=== PATIENT | female | born 1945 | race Caucasian/White ===

== ENCOUNTER 2019-05-12 20:52 | Observation (INO) ==
[2019-05-13] MEDS ORDERED: Ondansetron ODT 4 MG TAB.RAPDIS SL PRN (01:06)
[2019-05-13] MEDS ORDERED: Naloxone 0.4 MG/ML INJ IVP PRN ×2 (01:06→02:46)
[2019-05-13] MEDS ORDERED: Acetaminophen 325 MG TABLET PO PRN (01:06)
[2019-05-13] MEDS ORDERED: *HR* Dextrose 50 % in Water (Syg) 50 ML SYRINGE IVP PRN (01:16)
[2019-05-13] MEDS ORDERED: Dextrose Gel 15 GM/37.5 ML TUBE PO PRN ×2 (01:16)
[2019-05-13] MEDS ORDERED: D5% in Water 1,000 ML IVC PRN (01:16)
[2019-05-13] MEDS ORDERED: Ondansetron 4 MG/2 ML VIAL IVP PRN (02:46)
[2019-05-13 03:53] LABS: Basophils % 0.2 %; Hematocrit 33.8 % (35.3-44.9); Immature Granulocytes % 0.5 % (0-4); Lymphocytes # 0.8 K/mcL (0.6-4.6); Lymphocytes % 8.5 %; Mean Corpuscular HGB Conc 32.5 g/dL (31.6-35.5); Mean Corpuscular Hemoglobin 28.9 pg (28.0-33.3); Mean Corpuscular Volume 88.7 fL (83.0-100.0); Mean Platelet Volume 9.5 fL (9.4-12.4); Monocytes # 0.2 K/mcL (0.0-1.3); Monocytes % 1.8 %; Neutrophils # 8.4 K/mcL (1.6-8.9); Platelet Count 238 K/mcL (140-400); Red Blood Count 3.81 M/mcL (3.82-4.97); Red Cell Distribution Width 14.3 % (11.5-14.5); White Blood Count 9.5 K/mcL (4.3-11.1)
[2019-05-13 04:04] LABS: INR 1.4; Prothrombin Time 15.5 Seconds (9.4-12.1)
[2019-05-13 04:14] LABS: BUN/Creatinine Ratio 20 (6-26); Blood Urea Nitrogen 18 mg/dL (8-23); Calcium 8.5 mg/dL (8.6-10.3); Carbon Dioxide 31 mEq/L (23-29); Chloride 95 mEq/L (98-107); Chol/HDL Ratio 2.6 (0-4.9); Glucose 366 mg/dL (70-105); Magnesium 1.4 mg/dL (1.6-2.6); Osmolality,Calculated 303 (280-300); Phosphorous 4.3 mg/dL (2.7-4.5); Potassium 3.9 mEq/L (3.5-5.1); Sodium 138 mEq/L (136-145); eGFR For African Americans > 60 (> 60); eGFR For Non-African Americans 60 (> 60)
[2019-05-13] MEDS: *HR* Enoxaparin 40 MG/0.4 ML SYRINGE SQ SCH (05:20)
[2019-05-13] MEDS ORDERED: Furosemide 20 MG TABLET PO SCH (09:00)
[2019-05-13] MEDS ORDERED: Metoprolol XL (24 HR) Succ 25 MG TAB.ER.24H PO SCH (09:00)
[2019-05-13] MEDS: Furosemide 40 MG/4 ML VIAL IVP SCH ×2 (09:18→20:17)
[2019-05-13] MEDS: Insulin LISPRO 300 UNITS/3 ML VIAL SQ SCH ×3 (09:27→18:00)
[2019-05-13] MEDS ORDERED: Gabapentin 400 MG CAPSULE PO SCH ×2 (15:00→21:00)
[2019-05-13] MEDS ORDERED: Perflutren Lipid Microsphere 1.3 ML in 0.9 % Sodium Chloride 8.7 ML IVP ONE (15:35)
[2019-05-13] MEDS ORDERED: traZODone 50 MG TABLET PO SCH (21:00)
[2019-05-14] MEDS: *HR* Enoxaparin 40 MG/0.4 ML SYRINGE SQ SCH (05:27)
[2019-05-14 06:03] LABS: Hematocrit 36.3 % (35.3-44.9); Hemoglobin 11.5 g/dL (11.5-15.4); Mean Corpuscular HGB Conc 31.7 g/dL (31.6-35.5); Mean Corpuscular Hemoglobin 28.4 pg (28.0-33.3); Mean Corpuscular Volume 89.6 fL (83.0-100.0); Mean Platelet Volume 9.9 fL (9.4-12.4); Platelet Count 275 K/mcL (140-400); Red Blood Count 4.05 M/mcL (3.82-4.97); Red Cell Distribution Width 14.6 % (11.5-14.5)
[2019-05-14 06:32] LABS: BUN/Creatinine Ratio 35 (6-26); Blood Urea Nitrogen 33 mg/dL (8-23); Calcium 8.8 mg/dL (8.6-10.3); Carbon Dioxide 35 mEq/L (23-29); Chloride 97 mEq/L (98-107); Glucose 248 mg/dL (70-105); Osmolality,Calculated 310 (280-300); Potassium 3.8 mEq/L (3.5-5.1); Sodium 142 mEq/L (136-145); eGFR For African Americans > 60 (> 60); eGFR For Non-African Americans 58 (> 60)
[2019-05-14] MEDS ORDERED: *HR* OxyCODONE/APAP 5/325 TABLET PO PRN ×2 (07:28→09:46)
[2019-05-14] MEDS: Insulin LISPRO 300 UNITS/3 ML VIAL SQ SCH ×2 (08:23→11:27)
[2019-05-14] MEDS ORDERED: Gabapentin 400 MG CAPSULE PO SCH (09:00)
[2019-05-14] MEDS ORDERED: Furosemide 40 MG/4 ML VIAL IVP SCH (09:00)
[2019-05-14] MEDS ORDERED: hydroCHLOROthiazide 25 MG TABLET PO SCH (09:00)
[2019-05-14 10:54] VITALS: BP 125/59
== END 2019-05-14 15:09 | disposition home or self-care (01) ==
LOC: 3ANU → SUATTDRO 22:38
PROVIDERS: ADMIT Student in an Organized Health Care Education/Training Program; ATTEND Internal Medicine

== ENCOUNTER 2020-03-01 04:26 | Inpatient (IN) ==
[2020-03-01] MEDS ORDERED: *HR* Promethazine 25 MG/ML VIAL IM PRN (06:32)
[2020-03-01] MEDS ORDERED: Naloxone 0.4 MG/ML INJ IVP PRN (06:32)
[2020-03-01] MEDS ORDERED: Ondansetron 4 MG/2 ML VIAL IVP PRN (06:32)
[2020-03-01] MEDS ORDERED: Dextrose Gel 15 GM/37.5 ML TUBE PO PRN ×4 (07:46→21:10)
[2020-03-01] MEDS ORDERED: D5% in Water 1,000 ML IVC PRN ×2 (07:46→21:10)
[2020-03-01] MEDS ORDERED: *HR* Dextrose 50 % in Water (Vial) 50 ML VIAL IVP PRN ×2 (07:46→21:10)
[2020-03-01] MEDS: Ipratropium 1 PUFF INHALER IH SCH ×3 (09:30→22:06)
[2020-03-01] MEDS: Budesonide/Formoterol 160/4.5 1 PUFF INH IH SCH ×2 (09:30→22:06)
[2020-03-01 09:57] LABS: % Iron Saturation 3 % (15-50); Iron 10 mcg/dL (50-170); Transferrin 262 mg/dL (203-362)
[2020-03-01 09:59] LABS: C-Reactive Protein 41 mg/L (Less than 10); Lactate Dehydrogenase 224 Units/L (140-271)
[2020-03-01] MEDS: Furosemide 20 MG/2 ML VIAL IVP SCH (09:59)
[2020-03-01] MEDS: Dexamethasone 4 MG/ML VIAL IVP SCH (10:00)
[2020-03-01] MEDS: *HR* Enoxaparin 40 MG/0.4 ML SYRINGE SQ SCH ×2 (10:01→20:46)
[2020-03-01] MEDS: Multivit/Ca/Min/Fe/FA 1 TAB TABLET PO SCH (10:01)
[2020-03-01 10:17] LABS: Ferritin 83 ng/mL (10-120)
[2020-03-01 10:22] LABS: Folate > 22.3 ng/mL (3.0-16.0); Vitamin B12 326 pg/mL (250-1100)
[2020-03-01 10:53] LABS: Estimated Average Glucose 240 mg/dl
[2020-03-01 11:22] LABS: ABG Base Excess 2 mEq/L (-2 to 3); ABG HCO3 26 mEq/L (21-27); ABG Oxygen Saturation 95 % (95-98); ABG PCO2 37 mmHg (35-45); ABG PH 7.45 pH Units (7.32-7.45); ABG PO2 71 mmHg (85-104); ABG TCO2 27 mEq/L (20-26)
[2020-03-01] MEDS: Insulin LISPRO 300 UNITS/3 ML VIAL SQ SCH ×3 (12:07→22:16)
[2020-03-01] MEDS: Calcium Gluconate 1gm/50mL 1 GM/50 ML BAG IVPB SCH ×2 (12:07→13:03)
[2020-03-01] MEDS: Insulin DETEMIR 100 UNIT/ML X5UNITS SQ SCH (20:46)
[2020-03-02] MEDS: Ipratropium 1 PUFF INHALER IH SCH ×4 (03:50→19:46)
[2020-03-02] MEDS: Acetaminophen 325 MG TABLET PO PRN ×2 (04:22→21:36)
[2020-03-02 06:25] LABS: Basophils % 0.2 %; Hematocrit 34.5 % (35.3-44.9); Hemoglobin 10.8 g/dL (11.5-15.4); Immature Granulocytes % 0.3 % (0-4); Lymphocytes # 1.4 K/mcL (0.6-4.6); Lymphocytes % 14.3 %; Mean Corpuscular HGB Conc 31.3 g/dL (31.6-35.5); Mean Corpuscular Hemoglobin 28.4 pg (28.0-33.3); Mean Corpuscular Volume 90.8 fL (83.0-100.0); Mean Platelet Volume 10.1 fL (9.4-12.4); Monocytes # 0.5 K/mcL (0.0-1.3); Monocytes % 4.8 %; Neutrophils # 7.9 K/mcL (1.6-8.9); Platelet Count 222 K/mcL (140-400); Red Cell Distribution Width 14.6 % (11.5-14.5); Segmented Neutrophils % 80.4 %; White Blood Count 9.8 K/mcL (4.3-11.1)
[2020-03-02 06:51] LABS: Alanine Aminotransferase 27 Units/L (7-52); Albumin 3.4 g/dL (3.5-5.7); Albumin/Globulin Ratio 0.9 (1.1-2.2); Alkaline Phosphatase 54 Units/L (34-104); Aspartate Amino Transferase 29 Units/L (13-39); BUN/Creatinine Ratio 39 (6-26); Bilirubin,Total 0.4 mg/dL (0.3-1.0); Blood Urea Nitrogen 24 mg/dL (8-23); Calcium 8.7 mg/dL (8.6-10.3); Carbon Dioxide 27 mEq/L (23-29); Chloride 101 mEq/L (98-107); Globulin 3.6 g/dL (2.4-3.5); Glucose 225 mg/dL (70-105); Lactate Dehydrogenase 268 Units/L (140-271); Osmolality,Calculated 295 (280-300); Potassium 3.7 mEq/L (3.5-5.1); Sodium 137 mEq/L (136-145); eGFR For African Americans > 60 (> 60); eGFR For Non-African Americans > 60 (> 60)
[2020-03-02 06:56] LABS: Ferritin 139 ng/mL (10-120)
[2020-03-02] MEDS ORDERED: Insulin LISPRO 300 UNITS/3 ML VIAL SQ SCH (07:30)
[2020-03-02] MEDS ORDERED: Azithromycin 500 MG in 0.9 % Sodium Chloride 250 ML IVPB SCH (09:00)
[2020-03-02] MEDS ORDERED: cefTRIAXone 1,000 MG in 0.9 % Sodium Chloride Mini Bag 100 ML IVP SCH (09:00)
[2020-03-02] MEDS: Multivit/Ca/Min/Fe/FA 1 TAB TABLET PO SCH (09:07)
[2020-03-02] MEDS: Dexamethasone 4 MG/ML VIAL IVP SCH ×2 (09:07→09:33)
[2020-03-02] MEDS: Insulin LISPRO 300 UNITS/3 ML VIAL SQ SCH ×3 (09:08→16:42)
[2020-03-02] MEDS: Furosemide 20 MG/2 ML VIAL IVP SCH ×2 (09:09→09:33)
[2020-03-02] MEDS: *HR* Enoxaparin 40 MG/0.4 ML SYRINGE SQ SCH ×2 (09:10→20:59)
[2020-03-02 09:42] LABS: C-Reactive Protein 50 mg/L (Less than 10)
[2020-03-02] MEDS ORDERED: dexAMETHasone 4 MG TABLET PO SCH (10:15)
[2020-03-02] MEDS: Budesonide/Formoterol 160/4.5 1 PUFF INH IH SCH ×2 (11:47→19:46)
[2020-03-02] MEDS ORDERED: Ondansetron ODT 4 MG TAB.RAPDIS SL ONE (11:59)
[2020-03-02] MEDS ORDERED: 0.9 % Sodium Chloride 250 ML IVC ONE (12:22)
[2020-03-02] MEDS: Metoclopramide 10 MG/2 ML VIAL IVP PRN (16:45)
[2020-03-02] MEDS ORDERED: 0.9 % Sodium Chloride 1,000 ML IVC SCH (18:00)
[2020-03-02] MEDS: cefTRIAXone 1,000 MG in Water for inj. (sterile) 10 ML IVP SCH (20:54)
[2020-03-02] MEDS: Azithromycin 500 MG in 0.9 % Sodium Chloride 250 ML IVPB SCH (20:57)
[2020-03-02] MEDS: Insulin DETEMIR 100 UNIT/ML X5UNITS SQ SCH (21:10)
[2020-03-03] MEDS: Insulin LISPRO 300 UNITS/3 ML VIAL SQ SCH ×5 (00:09→22:08)
[2020-03-03 03:48] LABS: Basophils % 0.4 %; Hematocrit 31.3 % (35.3-44.9); Hemoglobin 9.5 g/dL (11.5-15.4); Immature Granulocytes % 0.4 % (0-4); Lymphocytes # 1.8 K/mcL (0.6-4.6); Lymphocytes % 22.4 %; Mean Corpuscular HGB Conc 30.4 g/dL (31.6-35.5); Mean Corpuscular Hemoglobin 27.1 pg (28.0-33.3); Mean Corpuscular Volume 89.4 fL (83.0-100.0); Mean Platelet Volume 10.2 fL (9.4-12.4); Monocytes # 0.3 K/mcL (0.0-1.3); Monocytes % 4.1 %; Neutrophils # 5.7 K/mcL (1.6-8.9); Platelet Count 217 K/mcL (140-400); Red Cell Distribution Width 15.1 % (11.5-14.5); Segmented Neutrophils % 72.7 %; White Blood Count 7.8 K/mcL (4.3-11.1)
[2020-03-03] MEDS: Ipratropium 1 PUFF INHALER IH SCH ×4 (03:52→21:54)
[2020-03-03 04:04] LABS: INR 1.4; Prothrombin Time 16.2 Seconds (9.4-12.1)
[2020-03-03 04:10] LABS: Alanine Aminotransferase 25 Units/L (7-52); Albumin/Globulin Ratio 0.9 (1.1-2.2); Alkaline Phosphatase 43 Units/L (34-104); Aspartate Amino Transferase 35 Units/L (13-39); BUN/Creatinine Ratio 38 (6-26); Bilirubin,Total 0.6 mg/dL (0.3-1.0); Blood Urea Nitrogen 23 mg/dL (8-23); C-Reactive Protein 136 mg/L (Less than 10); Calcium 7.7 mg/dL (8.6-10.3); Carbon Dioxide 28 mEq/L (23-29); Chloride 101 mEq/L (98-107); Globulin 3.2 g/dL (2.4-3.5); Glucose 155 mg/dL (70-105); Lactate Dehydrogenase 296 Units/L (140-271); Osmolality,Calculated 291 (280-300); Potassium 3.4 mEq/L (3.5-5.1); Sodium 137 mEq/L (136-145); Total Protein 6.2 g/dL (6.4-8.9); eGFR For African Americans > 60 (> 60); eGFR For Non-African Americans > 60 (> 60)
[2020-03-03 04:27] LABS: Ferritin 243 ng/mL (10-120)
[2020-03-03] MEDS: Acetaminophen 325 MG TABLET PO PRN ×2 (05:29→13:34)
[2020-03-03] MEDS: Budesonide/Formoterol 160/4.5 1 PUFF INH IH SCH ×2 (10:04→21:56)
[2020-03-03] MEDS: Dexamethasone 4 MG/ML VIAL IVP SCH (11:11)
[2020-03-03] MEDS: Potassium Chloride Elixir 20 MEQ/15 ML UDC PO SCH ×2 (11:12→13:23)
[2020-03-03] MEDS: Multivit/Ca/Min/Fe/FA 1 TAB TABLET PO SCH (11:12)
[2020-03-03] MEDS: *HR* Enoxaparin 40 MG/0.4 ML SYRINGE SQ SCH ×2 (11:13→22:05)
[2020-03-03] MEDS ORDERED: Furosemide 20 MG/2 ML VIAL IVP SCH (12:00)
[2020-03-03] MEDS: Metoclopramide 10 MG/2 ML VIAL IVP PRN (13:33)
[2020-03-03] MEDS: Benzonatate 100 MG CAPSULE PO PRN (22:04)
[2020-03-03] MEDS: Gabapentin 400 MG CAPSULE PO SCH (22:05)
[2020-03-03] MEDS: Furosemide 20 MG/2 ML VIAL IVP SCH (22:05)
[2020-03-03] MEDS: Azithromycin 500 MG in 0.9 % Sodium Chloride 250 ML IVPB SCH (22:06)
[2020-03-03] MEDS: cefTRIAXone 1,000 MG in Water for inj. (sterile) 10 ML IVP SCH (22:07)
[2020-03-03] MEDS: Insulin DETEMIR 100 UNIT/ML X5UNITS SQ SCH (22:09)
[2020-03-04] MEDS: Acetaminophen 325 MG TABLET PO PRN ×2 (03:00→05:47)
[2020-03-04 03:33] LABS: Basophils % 0.1 %; Hematocrit 31.6 % (35.3-44.9); Hemoglobin 9.7 g/dL (11.5-15.4); Immature Granulocytes % 0.7 % (0-4); Lymphocytes # 0.5 K/mcL (0.6-4.6); Mean Corpuscular HGB Conc 30.7 g/dL (31.6-35.5); Mean Corpuscular Hemoglobin 27.5 pg (28.0-33.3); Mean Corpuscular Volume 89.5 fL (83.0-100.0); Mean Platelet Volume 10.6 fL (9.4-12.4); Monocytes # 0.3 K/mcL (0.0-1.3); Monocytes % 3.3 %; Neutrophils # 6.7 K/mcL (1.6-8.9); Platelet Count 216 K/mcL (140-400); Red Blood Count 3.53 M/mcL (3.82-4.97); Red Cell Distribution Width 15.1 % (11.5-14.5); Segmented Neutrophils % 88.9 %; White Blood Count 7.6 K/mcL (4.3-11.1)
[2020-03-04 03:34] LABS: INR 1.6; Prothrombin Time 18.2 Seconds (9.4-12.1)
[2020-03-04] MEDS: Ipratropium 1 PUFF INHALER IH SCH ×4 (03:53→20:03)
[2020-03-04 04:12] LABS: Alanine Aminotransferase 36 Units/L (7-52); Albumin/Globulin Ratio 0.8 (1.1-2.2); Alkaline Phosphatase 46 Units/L (34-104); Aspartate Amino Transferase 64 Units/L (13-39); BUN/Creatinine Ratio 34 (6-26); Bilirubin,Total 0.5 mg/dL (0.3-1.0); Blood Urea Nitrogen 20 mg/dL (8-23); C-Reactive Protein 218 mg/L (Less than 10); Calcium 7.7 mg/dL (8.6-10.3); Carbon Dioxide 27 mEq/L (23-29); Chloride 99 mEq/L (98-107); Ferritin 414 ng/mL (10-120); Globulin 3.7 g/dL (2.4-3.5); Glucose 270 mg/dL (70-105); Lactate Dehydrogenase 601 Units/L (140-271); Osmolality,Calculated 290 (280-300); Potassium 4.8 mEq/L (3.5-5.1); Sodium 134 mEq/L (136-145); Total Protein 6.7 g/dL (6.4-8.9); eGFR For African Americans > 60 (> 60); eGFR For Non-African Americans > 60 (> 60)
[2020-03-04] MEDS: Gabapentin 400 MG CAPSULE PO SCH ×3 (05:37→20:05)
[2020-03-04] MEDS: Insulin LISPRO 300 UNITS/3 ML VIAL SQ SCH ×4 (07:50→20:56)
[2020-03-04] MEDS: Metoprolol XL (24 HR) Succ 25 MG TAB.ER.24H PO SCH (07:51)
[2020-03-04] MEDS: Furosemide 20 MG/2 ML VIAL IVP SCH ×2 (07:51→20:01)
[2020-03-04] MEDS: Dexamethasone 4 MG/ML VIAL IVP SCH (07:52)
[2020-03-04] MEDS: *HR* Enoxaparin 40 MG/0.4 ML SYRINGE SQ SCH ×2 (07:52→20:04)
[2020-03-04] MEDS: Multivit/Ca/Min/Fe/FA 1 TAB TABLET PO SCH (07:53)
[2020-03-04] MEDS: Budesonide/Formoterol 160/4.5 1 PUFF INH IH SCH ×2 (10:05→20:03)
[2020-03-04] MEDS: cefTRIAXone 1,000 MG in Water for inj. (sterile) 10 ML IVP SCH (20:01)
[2020-03-04] MEDS: Insulin DETEMIR 100 UNIT/ML X5UNITS SQ SCH (20:02)
[2020-03-04] MEDS: Azithromycin 250 MG TABLET PO SCH (20:04)
[2020-03-05] MEDS: Ipratropium 1 PUFF INHALER IH SCH ×4 (03:39→21:13)
[2020-03-05] MEDS: Gabapentin 400 MG CAPSULE PO SCH ×3 (05:11→22:57)
[2020-03-05 05:20] LABS: Basophils % 0.1 %; Hematocrit 32.2 % (35.3-44.9); Immature Granulocytes % 0.9 % (0-4); Lymphocytes % 9.1 %; Mean Corpuscular HGB Conc 31.1 g/dL (31.6-35.5); Mean Corpuscular Hemoglobin 27.6 pg (28.0-33.3); Mean Platelet Volume 9.7 fL (9.4-12.4); Monocytes # 0.4 K/mcL (0.0-1.3); Monocytes % 3.6 %; Neutrophils # 9.5 K/mcL (1.6-8.9); Platelet Count 288 K/mcL (140-400); Red Blood Count 3.62 M/mcL (3.82-4.97); Red Cell Distribution Width 14.9 % (11.5-14.5); Segmented Neutrophils % 86.3 %
[2020-03-05 05:35] LABS: Alanine Aminotransferase 36 Units/L (7-52); Albumin 3.1 g/dL (3.5-5.7); Albumin/Globulin Ratio 0.8 (1.1-2.2); Alkaline Phosphatase 53 Units/L (34-104); Aspartate Amino Transferase 57 Units/L (13-39); BUN/Creatinine Ratio 47 (6-26); Bilirubin,Total 0.5 mg/dL (0.3-1.0); Blood Urea Nitrogen 26 mg/dL (8-23); Calcium 8.4 mg/dL (8.6-10.3); Carbon Dioxide 31 mEq/L (23-29); Chloride 99 mEq/L (98-107); Globulin 3.8 g/dL (2.4-3.5); Glucose 176 mg/dL (70-105); Osmolality,Calculated 291 (280-300); Potassium 4.8 mEq/L (3.5-5.1); Sodium 136 mEq/L (136-145); Total Protein 6.9 g/dL (6.4-8.9); eGFR For African Americans > 60 (> 60); eGFR For Non-African Americans > 60 (> 60)
[2020-03-05 05:42] LABS: INR 1.3; Prothrombin Time 14.6 Seconds (9.4-12.1)
[2020-03-05 06:36] LABS: Phosphorous 3.6 mg/dL (2.7-4.5)
[2020-03-05] MEDS: Multivit/Ca/Min/Fe/FA 1 TAB TABLET PO SCH (08:18)
[2020-03-05] MEDS: Furosemide 20 MG/2 ML VIAL IVP SCH ×2 (08:18→22:53)
[2020-03-05] MEDS: Metoprolol XL (24 HR) Succ 25 MG TAB.ER.24H PO SCH (08:18)
[2020-03-05] MEDS: *HR* Enoxaparin 40 MG/0.4 ML SYRINGE SQ SCH ×2 (08:19→22:57)
[2020-03-05] MEDS: Dexamethasone 4 MG/ML VIAL IVP SCH (08:19)
[2020-03-05] MEDS: Insulin LISPRO 300 UNITS/3 ML VIAL SQ SCH ×4 (08:19→22:50)
[2020-03-05] MEDS: Benzonatate 100 MG CAPSULE PO PRN (08:38)
[2020-03-05] MEDS ORDERED: Dexamethasone 4 MG/ML VIAL IVP ONE (10:58)
[2020-03-05] MEDS: Dexamethasone Sodium Phos/PF 10 MG/ML VIAL IVP SCH (10:59)
[2020-03-05] MEDS: Budesonide/Formoterol 160/4.5 1 PUFF INH IH SCH ×2 (11:36→21:13)
[2020-03-05] MEDS: cefTRIAXone 1,000 MG in Water for inj. (sterile) 10 ML IVP SCH (22:54)
[2020-03-05] MEDS: Azithromycin 250 MG TABLET PO SCH (22:56)
[2020-03-06] MEDS: Ipratropium 1 PUFF INHALER IH SCH ×5 (03:51→22:48)
[2020-03-06] MEDS: Gabapentin 400 MG CAPSULE PO SCH ×3 (06:46→21:28)
[2020-03-06] MEDS: *HR* Enoxaparin 40 MG/0.4 ML SYRINGE SQ SCH ×2 (07:28→21:29)
[2020-03-06] MEDS: Multivit/Ca/Min/Fe/FA 1 TAB TABLET PO SCH (07:28)
[2020-03-06] MEDS: Metoprolol XL (24 HR) Succ 25 MG TAB.ER.24H PO SCH (07:28)
[2020-03-06] MEDS: Dexamethasone Sodium Phos/PF 10 MG/ML VIAL IVP SCH (07:29)
[2020-03-06] MEDS: Furosemide 20 MG/2 ML VIAL IVP SCH ×2 (07:30→21:27)
[2020-03-06] MEDS: Insulin DETEMIR 100 UNIT/ML X5UNITS SQ SCH ×2 (07:32→21:54)
[2020-03-06] MEDS: Insulin LISPRO 300 UNITS/3 ML VIAL SQ SCH ×4 (07:33→21:52)
[2020-03-06] MEDS: Budesonide/Formoterol 160/4.5 1 PUFF INH IH SCH ×2 (08:33→22:49)
[2020-03-06 08:45] LABS: INR 1.3; Prothrombin Time 15.1 Seconds (9.4-12.1)
[2020-03-06 08:50] LABS: Hematocrit 33.6 % (35.3-44.9); Hemoglobin 10.2 g/dL (11.5-15.4); Mean Corpuscular HGB Conc 30.4 g/dL (31.6-35.5); Mean Corpuscular Hemoglobin 26.8 pg (28.0-33.3); Mean Corpuscular Volume 88.4 fL (83.0-100.0); Monocytes # 0.5 K/mcL (0.0-1.3); Platelet Count 352 K/mcL (140-400); Red Cell Distribution Width 14.7 % (11.5-14.5); White Blood Count 10.6 K/mcL (4.3-11.1)
[2020-03-06 09:00] LABS: Alanine Aminotransferase 41 Units/L (7-52); Albumin 3.3 g/dL (3.5-5.7); Albumin/Globulin Ratio 0.8 (1.1-2.2); Alkaline Phosphatase 75 Units/L (34-104); Aspartate Amino Transferase 68 Units/L (13-39); BUN/Creatinine Ratio 47 (6-26); Bilirubin,Total 0.5 mg/dL (0.3-1.0); Blood Urea Nitrogen 27 mg/dL (8-23); Calcium 8.7 mg/dL (8.6-10.3); Carbon Dioxide 29 mEq/L (23-29); Chloride 97 mEq/L (98-107); Glucose 244 mg/dL (70-105); Osmolality,Calculated 293 (280-300); Phosphorous 4.4 mg/dL (2.7-4.5); Potassium 4.4 mEq/L (3.5-5.1); Sodium 135 mEq/L (136-145); Total Protein 7.3 g/dL (6.4-8.9); eGFR For African Americans > 60 (> 60); eGFR For Non-African Americans > 60 (> 60)
[2020-03-06 09:30] LABS: Lymphocytes # 1.6 K/mcL (0.6-4.6); Neutrophils # 8.5 K/mcL (1.6-8.9); Platelet Estimate Normal (Normal); Reactive Lymphocytes Present (Not Present)
[2020-03-06] MEDS ORDERED: Remdesivir 100 MG in 0.9 % Sodium Chloride 230 ML IVPB SCH (13:00)
[2020-03-06] MEDS ORDERED: SODIUM CHLORIDE 0.9% IVPB SCH (13:00)
[2020-03-06] MEDS ORDERED: REMDESIVIR IVPB SCH (13:00)
[2020-03-06] MEDS: cefTRIAXone 1,000 MG in Water for inj. (sterile) 10 ML IVP SCH (21:24)
[2020-03-06] MEDS: Azithromycin 250 MG TABLET PO SCH (21:28)
[2020-03-07] MEDS: Ipratropium 1 PUFF INHALER IH SCH ×4 (04:25→19:47)
[2020-03-07] MEDS: Gabapentin 400 MG CAPSULE PO SCH ×3 (06:09→20:13)
[2020-03-07] MEDS: Budesonide/Formoterol 160/4.5 1 PUFF INH IH SCH ×2 (07:29→19:48)
[2020-03-07] MEDS: *HR* Enoxaparin 40 MG/0.4 ML SYRINGE SQ SCH ×2 (09:54→20:11)
[2020-03-07] MEDS: Metoprolol XL (24 HR) Succ 25 MG TAB.ER.24H PO SCH (09:54)
[2020-03-07] MEDS: Multivit/Ca/Min/Fe/FA 1 TAB TABLET PO SCH (09:54)
[2020-03-07] MEDS: Furosemide 20 MG/2 ML VIAL IVP SCH ×2 (09:54→20:11)
[2020-03-07] MEDS: Insulin LISPRO 300 UNITS/3 ML VIAL SQ SCH ×4 (09:57→20:12)
[2020-03-07] MEDS: Dexamethasone Sodium Phos/PF 10 MG/ML VIAL IVP SCH (10:01)
[2020-03-07 11:16] LABS: Hematocrit 35.5 % (35.3-44.9); Hemoglobin 10.9 g/dL (11.5-15.4); Mean Corpuscular HGB Conc 30.7 g/dL (31.6-35.5); Mean Corpuscular Hemoglobin 27.4 pg (28.0-33.3); Mean Corpuscular Volume 89.2 fL (83.0-100.0); Mean Platelet Volume 9.9 fL (9.4-12.4); Nucleated Red Blood Cells 0.2 /100 WBC (0); Platelet Count 380 K/mcL (140-400); Red Blood Count 3.98 M/mcL (3.82-4.97); Red Cell Distribution Width 14.6 % (11.5-14.5); White Blood Count 14.9 K/mcL (4.3-11.1)
[2020-03-07 11:19] LABS: INR 1.4; Prothrombin Time 16.2 Seconds (9.4-12.1)
[2020-03-07 11:25] LABS: Alanine Aminotransferase 41 Units/L (7-52); Albumin 3.2 g/dL (3.5-5.7); Albumin/Globulin Ratio 0.8 (1.1-2.2); Alkaline Phosphatase 112 Units/L (34-104); Aspartate Amino Transferase 63 Units/L (13-39); BUN/Creatinine Ratio 41 (6-26); Bilirubin,Total 0.6 mg/dL (0.3-1.0); Blood Urea Nitrogen 30 mg/dL (8-23); Calcium 9.2 mg/dL (8.6-10.3); Carbon Dioxide 33 mEq/L (23-29); Chloride 95 mEq/L (98-107); Globulin 4.2 g/dL (2.4-3.5); Glucose 319 mg/dL (70-105); Magnesium 1.7 mg/dL (1.6-2.6); Osmolality,Calculated 300 (280-300); Phosphorous 3.7 mg/dL (2.7-4.5); Potassium 4.3 mEq/L (3.5-5.1); Sodium 136 mEq/L (136-145); Total Protein 7.4 g/dL (6.4-8.9); eGFR For African Americans > 60 (> 60); eGFR For Non-African Americans > 60 (> 60)
[2020-03-07 12:13] LABS: Lymphocytes # 1.5 K/mcL (0.6-4.6); Monocytes # 0.3 K/mcL (0.0-1.3); Neutrophils # 13.1 K/mcL (1.6-8.9); Platelet Estimate Normal (Normal); Reactive Lymphocytes Present (Not Present)
[2020-03-07] MEDS ORDERED: Insulin DETEMIR 100 UNIT/ML X5UNITS SQ ONE (15:36)
[2020-03-07] MEDS: Insulin DETEMIR 100 UNIT/ML X5UNITS SQ SCH (20:12)
[2020-03-08] MEDS: Ipratropium 1 PUFF INHALER IH SCH ×4 (03:42→20:51)
[2020-03-08] MEDS: Gabapentin 400 MG CAPSULE PO SCH ×3 (05:14→21:13)
[2020-03-08 06:34] LABS: Hematocrit 34.4 % (35.3-44.9); Hemoglobin 10.9 g/dL (11.5-15.4); Mean Corpuscular HGB Conc 31.7 g/dL (31.6-35.5); Mean Corpuscular Hemoglobin 27.9 pg (28.0-33.3); Mean Corpuscular Volume 88.2 fL (83.0-100.0); Mean Platelet Volume 9.6 fL (9.4-12.4); Nucleated Red Blood Cells 0.1 /100 WBC (0); Platelet Count 335 K/mcL (140-400); Red Cell Distribution Width 14.6 % (11.5-14.5); White Blood Count 14.1 K/mcL (4.3-11.1)
[2020-03-08 06:41] LABS: Alanine Aminotransferase 40 Units/L (7-52); Albumin 2.9 g/dL (3.5-5.7); Albumin/Globulin Ratio 0.7 (1.1-2.2); Alkaline Phosphatase 109 Units/L (34-104); Aspartate Amino Transferase 60 Units/L (13-39); BUN/Creatinine Ratio 52 (6-26); Bilirubin,Total 0.6 mg/dL (0.3-1.0); Blood Urea Nitrogen 30 mg/dL (8-23); Calcium 8.8 mg/dL (8.6-10.3); Carbon Dioxide 34 mEq/L (23-29); Chloride 93 mEq/L (98-107); Globulin 3.9 g/dL (2.4-3.5); Glucose 247 mg/dL (70-105); Magnesium 1.8 mg/dL (1.6-2.6); Osmolality,Calculated 294 (280-300); Phosphorous 4.9 mg/dL (2.7-4.5); Potassium 4.4 mEq/L (3.5-5.1); Sodium 135 mEq/L (136-145); Total Protein 6.8 g/dL (6.4-8.9); eGFR For African Americans > 60 (> 60); eGFR For Non-African Americans > 60 (> 60)
[2020-03-08 06:50] LABS: INR 1.5; Prothrombin Time 17.3 Seconds (9.4-12.1)
[2020-03-08] MEDS: Budesonide/Formoterol 160/4.5 1 PUFF INH IH SCH ×2 (08:08→20:51)
[2020-03-08] MEDS: Furosemide 20 MG/2 ML VIAL IVP SCH ×2 (09:44→21:13)
[2020-03-08] MEDS: Multivit/Ca/Min/Fe/FA 1 TAB TABLET PO SCH (09:44)
[2020-03-08] MEDS: Metoprolol XL (24 HR) Succ 25 MG TAB.ER.24H PO SCH (09:44)
[2020-03-08] MEDS: Dexamethasone Sodium Phos/PF 10 MG/ML VIAL IVP SCH (09:45)
[2020-03-08] MEDS: Insulin LISPRO 300 UNITS/3 ML VIAL SQ SCH ×4 (09:46→21:35)
[2020-03-08] MEDS: Insulin DETEMIR 100 UNIT/ML X5UNITS SQ SCH ×2 (09:47→21:13)
[2020-03-08] MEDS: *HR* Enoxaparin 40 MG/0.4 ML SYRINGE SQ SCH ×2 (09:47→21:13)
[2020-03-08] MEDS: Acetaminophen 325 MG TABLET PO PRN (09:56)
[2020-03-08 11:21] LABS: Eosinophils # 0.3 K/mcL (0.0-0.6); Lymphocytes # 1.4 K/mcL (0.6-4.6); Monocytes # 0.6 K/mcL (0.0-1.3); Neutrophils # 11.8 K/mcL (1.6-8.9)
[2020-03-08 11:22] LABS: Platelet Estimate Normal (Normal)
[2020-03-09] MEDS: Ipratropium 1 PUFF INHALER IH SCH ×4 (03:59→22:15)
[2020-03-09] MEDS: Gabapentin 400 MG CAPSULE PO SCH ×3 (05:51→20:12)
[2020-03-09 07:18] LABS: Basophils % 0.3 %; Eosinophils % 0.1 %; Hematocrit 35.2 % (35.3-44.9); Hemoglobin 11.1 g/dL (11.5-15.4); Immature Granulocytes % 3.3 % (0-4); Lymphocytes # 1.6 K/mcL (0.6-4.6); Lymphocytes % 11.8 %; Mean Corpuscular HGB Conc 31.5 g/dL (31.6-35.5); Mean Corpuscular Hemoglobin 27.3 pg (28.0-33.3); Mean Corpuscular Volume 86.7 fL (83.0-100.0); Mean Platelet Volume 9.6 fL (9.4-12.4); Monocytes # 0.5 K/mcL (0.0-1.3); Monocytes % 3.6 %; Neutrophils # 11.1 K/mcL (1.6-8.9); Nucleated Red Blood Cells 0.1 /100 WBC (0); Platelet Count 347 K/mcL (140-400); Red Blood Count 4.06 M/mcL (3.82-4.97); Red Cell Distribution Width 14.5 % (11.5-14.5); Segmented Neutrophils % 80.9 %; White Blood Count 13.7 K/mcL (4.3-11.1)
[2020-03-09 07:19] LABS: INR 1.4; Prothrombin Time 15.8 Seconds (9.4-12.1)
[2020-03-09 07:44] LABS: Alanine Aminotransferase 37 Units/L (7-52); Albumin/Globulin Ratio 0.7 (1.1-2.2); Alkaline Phosphatase 101 Units/L (34-104); Aspartate Amino Transferase 44 Units/L (13-39); BUN/Creatinine Ratio 61 (6-26); Bilirubin,Total 0.6 mg/dL (0.3-1.0); Blood Urea Nitrogen 34 mg/dL (8-23); Carbon Dioxide 33 mEq/L (23-29); Chloride 95 mEq/L (98-107); Globulin 4.1 g/dL (2.4-3.5); Glucose 256 mg/dL (70-105); Osmolality,Calculated 296 (280-300); Potassium 4.2 mEq/L (3.5-5.1); Sodium 135 mEq/L (136-145); Total Protein 7.1 g/dL (6.4-8.9); eGFR For African Americans > 60 (> 60); eGFR For Non-African Americans > 60 (> 60)
[2020-03-09 07:47] LABS: Phosphorous 5.3 mg/dL (2.7-4.5)
[2020-03-09 08:04] LABS: Platelet Estimate Normal (Normal); Reactive Lymphocytes Present (Not Present)
[2020-03-09] MEDS: Budesonide/Formoterol 160/4.5 1 PUFF INH IH SCH ×2 (08:04→22:15)
[2020-03-09] MEDS: Metoprolol XL (24 HR) Succ 25 MG TAB.ER.24H PO SCH (08:34)
[2020-03-09] MEDS: Multivit/Ca/Min/Fe/FA 1 TAB TABLET PO SCH (08:34)
[2020-03-09] MEDS: Furosemide 20 MG/2 ML VIAL IVP SCH ×2 (08:35→20:12)
[2020-03-09] MEDS: Insulin DETEMIR 100 UNIT/ML X5UNITS SQ SCH ×2 (08:38→20:45)
[2020-03-09] MEDS: Dexamethasone Sodium Phos/PF 10 MG/ML VIAL IVP SCH (08:38)
[2020-03-09] MEDS: Insulin LISPRO 300 UNITS/3 ML VIAL SQ SCH ×4 (08:48→21:48)
[2020-03-09] MEDS: *HR* Enoxaparin 100 MG/ML SYRINGE SQ SCH ×2 (09:16→20:11)
[2020-03-09] MEDS ORDERED: Insulin LISPRO 300 UNITS/3 ML VIAL SQ ONE ×2 (18:11→20:05)
[2020-03-10] MEDS: Ipratropium 1 PUFF INHALER IH SCH ×4 (03:48→21:38)
[2020-03-10] MEDS: Gabapentin 400 MG CAPSULE PO SCH ×3 (04:45→21:09)
[2020-03-10 05:05] LABS: Basophils # 0.1 K/mcL (0.0-0.2); Basophils % 0.3 %; Hematocrit 35.9 % (35.3-44.9); Hemoglobin 11.1 g/dL (11.5-15.4); Immature Granulocytes % 3.7 % (0-4); Lymphocytes # 1.4 K/mcL (0.6-4.6); Lymphocytes % 9.7 %; Mean Corpuscular HGB Conc 30.9 g/dL (31.6-35.5); Mean Corpuscular Hemoglobin 26.9 pg (28.0-33.3); Mean Corpuscular Volume 86.9 fL (83.0-100.0); Mean Platelet Volume 9.6 fL (9.4-12.4); Monocytes # 0.8 K/mcL (0.0-1.3); Monocytes % 5.1 %; Neutrophils # 11.9 K/mcL (1.6-8.9); Nucleated Red Blood Cells 0.1 /100 WBC (0); Platelet Count 343 K/mcL (140-400); Red Blood Count 4.13 M/mcL (3.82-4.97); Red Cell Distribution Width 14.3 % (11.5-14.5); Segmented Neutrophils % 81.2 %; White Blood Count 14.7 K/mcL (4.3-11.1)
[2020-03-10 05:11] LABS: INR 1.4; Prothrombin Time 15.6 Seconds (9.4-12.1)
[2020-03-10 05:19] LABS: Alanine Aminotransferase 36 Units/L (7-52); Albumin 2.7 g/dL (3.5-5.7); Albumin/Globulin Ratio 0.7 (1.1-2.2); Alkaline Phosphatase 87 Units/L (34-104); Aspartate Amino Transferase 40 Units/L (13-39); BUN/Creatinine Ratio 51 (6-26); Bilirubin,Total 0.4 mg/dL (0.3-1.0); Blood Urea Nitrogen 34 mg/dL (8-23); Calcium 8.3 mg/dL (8.6-10.3); Carbon Dioxide 31 mEq/L (23-29); Chloride 95 mEq/L (98-107); Globulin 4.1 g/dL (2.4-3.5); Glucose 306 mg/dL (70-105); Magnesium 1.9 mg/dL (1.6-2.6); Osmolality,Calculated 295 (280-300); Phosphorous 4.5 mg/dL (2.7-4.5); Potassium 4.4 mEq/L (3.5-5.1); Sodium 133 mEq/L (136-145); Total Protein 6.8 g/dL (6.4-8.9); eGFR For African Americans > 60 (> 60); eGFR For Non-African Americans > 60 (> 60)
[2020-03-10] MEDS: Multivit/Ca/Min/Fe/FA 1 TAB TABLET PO SCH (08:06)
[2020-03-10] MEDS: Metoprolol XL (24 HR) Succ 25 MG TAB.ER.24H PO SCH (08:06)
[2020-03-10] MEDS: Insulin DETEMIR 100 UNIT/ML X5UNITS SQ SCH ×2 (08:07→21:10)
[2020-03-10] MEDS: Dexamethasone 4 MG/ML VIAL IVP SCH (08:08)
[2020-03-10] MEDS: Furosemide 20 MG/2 ML VIAL IVP SCH ×2 (08:08→21:09)
[2020-03-10] MEDS: *HR* Enoxaparin 100 MG/ML SYRINGE SQ SCH ×2 (08:09→21:10)
[2020-03-10] MEDS: Insulin LISPRO 300 UNITS/3 ML VIAL SQ SCH ×6 (08:15→21:09)
[2020-03-10] MEDS: Budesonide/Formoterol 160/4.5 1 PUFF INH IH SCH ×2 (09:43→21:39)
[2020-03-10] MEDS ORDERED: Isovue-370 500 ML BOTTLE IVP ONE (11:57)
[2020-03-11] MEDS: Ipratropium 1 PUFF INHALER IH SCH ×4 (03:32→22:06)
[2020-03-11 06:47] LABS: Basophils % 0.3 %; Eosinophils % 0.2 %; Hematocrit 36.4 % (35.3-44.9); Hemoglobin 11.4 g/dL (11.5-15.4); Immature Granulocytes % 1.5 % (0-4); Lymphocytes # 1.7 K/mcL (0.6-4.6); Lymphocytes % 11.4 %; Mean Corpuscular HGB Conc 31.3 g/dL (31.6-35.5); Mean Corpuscular Hemoglobin 27.5 pg (28.0-33.3); Mean Corpuscular Volume 87.9 fL (83.0-100.0); Mean Platelet Volume 9.6 fL (9.4-12.4); Monocytes # 0.7 K/mcL (0.0-1.3); Monocytes % 4.2 %; Neutrophils # 12.6 K/mcL (1.6-8.9); Platelet Count 345 K/mcL (140-400); Red Blood Count 4.14 M/mcL (3.82-4.97); Red Cell Distribution Width 14.6 % (11.5-14.5); Segmented Neutrophils % 82.4 %; White Blood Count 15.3 K/mcL (4.3-11.1)
[2020-03-11 07:04] LABS: Alanine Aminotransferase 38 Units/L (7-52); Albumin 2.8 g/dL (3.5-5.7); Albumin/Globulin Ratio 0.7 (1.1-2.2); Alkaline Phosphatase 79 Units/L (34-104); Aspartate Amino Transferase 40 Units/L (13-39); BUN/Creatinine Ratio 56 (6-26); Bilirubin,Total 0.5 mg/dL (0.3-1.0); Blood Urea Nitrogen 34 mg/dL (8-23); Calcium 9.1 mg/dL (8.6-10.3); Carbon Dioxide 35 mEq/L (23-29); Chloride 96 mEq/L (98-107); Glucose 146 mg/dL (70-105); Osmolality,Calculated 294 (280-300); Sodium 137 mEq/L (136-145); Total Protein 6.8 g/dL (6.4-8.9); eGFR For African Americans > 60 (> 60); eGFR For Non-African Americans > 60 (> 60)
[2020-03-11] MEDS: Gabapentin 400 MG CAPSULE PO SCH ×3 (07:04→20:03)
[2020-03-11] MEDS: Insulin DETEMIR 100 UNIT/ML X5UNITS SQ SCH ×2 (08:02→20:00)
[2020-03-11] MEDS: *HR* Enoxaparin 100 MG/ML SYRINGE SQ SCH (08:03)
[2020-03-11] MEDS: Multivit/Ca/Min/Fe/FA 1 TAB TABLET PO SCH (08:04)
[2020-03-11] MEDS: Metoprolol XL (24 HR) Succ 25 MG TAB.ER.24H PO SCH (08:04)
[2020-03-11] MEDS: Dexamethasone 4 MG/ML VIAL IVP SCH (08:05)
[2020-03-11] MEDS: Furosemide 20 MG/2 ML VIAL IVP SCH ×2 (08:05→20:01)
[2020-03-11] MEDS: Insulin LISPRO 300 UNITS/3 ML VIAL SQ SCH ×7 (08:06→20:02)
[2020-03-11] MEDS: Budesonide/Formoterol 160/4.5 1 PUFF INH IH SCH ×2 (09:35→22:07)
[2020-03-11] MEDS ORDERED: Insulin Human Regular 10 UNIT in 0.9 % Sodium Chloride 10 ML IV ONE (23:53)
[2020-03-12] MEDS: Ipratropium 1 PUFF INHALER IH SCH ×4 (04:25→22:24)
[2020-03-12] MEDS: *HR* Enoxaparin 40 MG/0.4 ML SYRINGE SQ SCH (05:26)
[2020-03-12] MEDS: Gabapentin 400 MG CAPSULE PO SCH ×3 (05:27→20:00)
[2020-03-12 06:33] LABS: Hematocrit 36.2 % (35.3-44.9); Hemoglobin 11.2 g/dL (11.5-15.4); Mean Corpuscular HGB Conc 30.9 g/dL (31.6-35.5); Mean Corpuscular Hemoglobin 27.3 pg (28.0-33.3); Mean Corpuscular Volume 88.3 fL (83.0-100.0); Mean Platelet Volume 9.5 fL (9.4-12.4); Platelet Count 333 K/mcL (140-400); Red Cell Distribution Width 14.6 % (11.5-14.5); White Blood Count 13.2 K/mcL (4.3-11.1)
[2020-03-12 06:39] LABS: INR 1.3; Prothrombin Time 14.4 Seconds (9.4-12.1)
[2020-03-12 06:50] LABS: BUN/Creatinine Ratio 57 (6-26); Blood Urea Nitrogen 38 mg/dL (8-23); Calcium 8.7 mg/dL (8.6-10.3); Carbon Dioxide 36 mEq/L (23-29); Chloride 94 mEq/L (98-107); Glucose 202 mg/dL (70-105); Osmolality,Calculated 297 (280-300); Potassium 4.1 mEq/L (3.5-5.1); Sodium 136 mEq/L (136-145); eGFR For African Americans > 60 (> 60); eGFR For Non-African Americans > 60 (> 60)
[2020-03-12] MEDS: Insulin LISPRO 300 UNITS/3 ML VIAL SQ SCH ×7 (08:00→20:07)
[2020-03-12] MEDS: Budesonide/Formoterol 160/4.5 1 PUFF INH IH SCH ×2 (08:54→22:25)
[2020-03-12] MEDS: Multivit/Ca/Min/Fe/FA 1 TAB TABLET PO SCH (10:23)
[2020-03-12] MEDS: Metoprolol XL (24 HR) Succ 25 MG TAB.ER.24H PO SCH (10:23)
[2020-03-12] MEDS: Dexamethasone 4 MG/ML VIAL IVP SCH (10:41)
[2020-03-12] MEDS: Insulin DETEMIR 100 UNIT/ML X5UNITS SQ SCH ×2 (10:41→20:07)
[2020-03-12] MEDS: Furosemide 20 MG/2 ML VIAL IVP SCH ×2 (10:41→20:06)
[2020-03-12] MEDS ORDERED: Insulin DETEMIR 100 UNIT/ML X5UNITS SQ ONE (20:16)
[2020-03-13] MEDS: Ipratropium 1 PUFF INHALER IH SCH ×4 (04:41→21:45)
[2020-03-13] MEDS: Gabapentin 400 MG CAPSULE PO SCH ×3 (05:46→19:59)
[2020-03-13] MEDS: *HR* Enoxaparin 40 MG/0.4 ML SYRINGE SQ SCH (05:46)
[2020-03-13 07:32] LABS: Hematocrit 34.4 % (35.3-44.9); Hemoglobin 10.8 g/dL (11.5-15.4); Mean Corpuscular HGB Conc 31.4 g/dL (31.6-35.5); Mean Corpuscular Hemoglobin 27.7 pg (28.0-33.3); Mean Corpuscular Volume 88.2 fL (83.0-100.0); Mean Platelet Volume 9.6 fL (9.4-12.4); Platelet Count 286 K/mcL (140-400); Red Cell Distribution Width 14.6 % (11.5-14.5); White Blood Count 12.1 K/mcL (4.3-11.1)
[2020-03-13 07:53] LABS: BUN/Creatinine Ratio 59 (6-26); Blood Urea Nitrogen 34 mg/dL (8-23); Calcium 8.6 mg/dL (8.6-10.3); Carbon Dioxide 32 mEq/L (23-29); Chloride 94 mEq/L (98-107); Glucose 287 mg/dL (70-105); Osmolality,Calculated 294 (280-300); Potassium 4.4 mEq/L (3.5-5.1); Sodium 133 mEq/L (136-145); eGFR For African Americans > 60 (> 60); eGFR For Non-African Americans > 60 (> 60)
[2020-03-13] MEDS: Insulin LISPRO 300 UNITS/3 ML VIAL SQ SCH ×6 (08:35→21:41)
[2020-03-13] MEDS: Dexamethasone 4 MG/ML VIAL IVP SCH (08:36)
[2020-03-13] MEDS: Furosemide 20 MG/2 ML VIAL IVP SCH ×2 (08:37→19:58)
[2020-03-13] MEDS: Metoprolol XL (24 HR) Succ 25 MG TAB.ER.24H PO SCH (08:37)
[2020-03-13] MEDS: Multivit/Ca/Min/Fe/FA 1 TAB TABLET PO SCH (08:39)
[2020-03-13] MEDS: Insulin DETEMIR 100 UNIT/ML X5UNITS SQ SCH ×2 (08:42→21:40)
[2020-03-13] MEDS: Budesonide/Formoterol 160/4.5 1 PUFF INH IH SCH ×2 (10:29→21:46)
[2020-03-14] MEDS: Ipratropium 1 PUFF INHALER IH SCH ×4 (03:13→22:09)
[2020-03-14] MEDS: *HR* Enoxaparin 40 MG/0.4 ML SYRINGE SQ SCH (05:23)
[2020-03-14] MEDS: Gabapentin 400 MG CAPSULE PO SCH ×3 (05:24→20:29)
[2020-03-14] MEDS: Budesonide/Formoterol 160/4.5 1 PUFF INH IH SCH ×2 (09:47→22:10)
[2020-03-14] MEDS: Insulin LISPRO 300 UNITS/3 ML VIAL SQ SCH ×8 (10:37→20:30)
[2020-03-14] MEDS: Insulin DETEMIR 100 UNIT/ML X5UNITS SQ SCH ×2 (10:37→20:30)
[2020-03-14] MEDS: Furosemide 20 MG/2 ML VIAL IVP SCH ×2 (10:39→20:30)
[2020-03-14] MEDS: Dexamethasone 4 MG/ML VIAL IVP SCH (10:39)
[2020-03-14] MEDS: Multivit/Ca/Min/Fe/FA 1 TAB TABLET PO SCH (10:40)
[2020-03-14] MEDS: Metoprolol XL (24 HR) Succ 25 MG TAB.ER.24H PO SCH (10:40)
[2020-03-15] MEDS: Ipratropium 1 PUFF INHALER IH SCH ×4 (04:09→21:52)
[2020-03-15] MEDS: *HR* Enoxaparin 40 MG/0.4 ML SYRINGE SQ SCH (04:56)
[2020-03-15] MEDS: Gabapentin 400 MG CAPSULE PO SCH ×3 (04:57→20:20)
[2020-03-15 05:16] LABS: Basophils % 0.1 %; Eosinophils % 0.1 %; Hematocrit 35.9 % (35.3-44.9); Hemoglobin 11.2 g/dL (11.5-15.4); Immature Granulocytes % 0.6 % (0-4); Lymphocytes # 1.1 K/mcL (0.6-4.6); Lymphocytes % 9.2 %; Mean Corpuscular HGB Conc 31.2 g/dL (31.6-35.5); Mean Corpuscular Hemoglobin 26.7 pg (28.0-33.3); Mean Corpuscular Volume 85.7 fL (83.0-100.0); Mean Platelet Volume 9.8 fL (9.4-12.4); Monocytes # 0.6 K/mcL (0.0-1.3); Monocytes % 5.6 %; Neutrophils # 9.7 K/mcL (1.6-8.9); Platelet Count 310 K/mcL (140-400); Red Blood Count 4.19 M/mcL (3.82-4.97); Red Cell Distribution Width 14.7 % (11.5-14.5); Segmented Neutrophils % 84.4 %; White Blood Count 11.5 K/mcL (4.3-11.1)
[2020-03-15 05:40] LABS: BUN/Creatinine Ratio 49 (6-26); Blood Urea Nitrogen 33 mg/dL (8-23); Calcium 8.3 mg/dL (8.6-10.3); Carbon Dioxide 29 mEq/L (23-29); Chloride 95 mEq/L (98-107); Glucose 288 mg/dL (70-105); Osmolality,Calculated 292 (280-300); Potassium 4.1 mEq/L (3.5-5.1); Sodium 132 mEq/L (136-145); eGFR For African Americans > 60 (> 60); eGFR For Non-African Americans > 60 (> 60)
[2020-03-15] MEDS: Insulin DETEMIR 100 UNIT/ML X5UNITS SQ SCH ×2 (09:50→20:20)
[2020-03-15] MEDS: Furosemide 20 MG/2 ML VIAL IVP SCH ×2 (09:51→20:20)
[2020-03-15] MEDS: Insulin LISPRO 300 UNITS/3 ML VIAL SQ SCH ×7 (09:51→20:19)
[2020-03-15] MEDS: dexAMETHasone 4 MG TABLET PO SCH (09:52)
[2020-03-15] MEDS: Multivit/Ca/Min/Fe/FA 1 TAB TABLET PO SCH (09:52)
[2020-03-15] MEDS: Metoprolol XL (24 HR) Succ 25 MG TAB.ER.24H PO SCH (09:52)
[2020-03-15] MEDS: Budesonide/Formoterol 160/4.5 1 PUFF INH IH SCH ×2 (10:49→21:55)
[2020-03-16] MEDS: Ipratropium 1 PUFF INHALER IH SCH ×4 (03:37→22:06)
[2020-03-16 05:20] LABS: Hematocrit 37.6 % (35.3-44.9); Hemoglobin 11.7 g/dL (11.5-15.4); Mean Corpuscular HGB Conc 31.1 g/dL (31.6-35.5); Mean Corpuscular Hemoglobin 27.1 pg (28.0-33.3); Mean Corpuscular Volume 87.2 fL (83.0-100.0); Mean Platelet Volume 9.4 fL (9.4-12.4); Platelet Count 297 K/mcL (140-400); Red Blood Count 4.31 M/mcL (3.82-4.97); Red Cell Distribution Width 14.6 % (11.5-14.5); White Blood Count 12.6 K/mcL (4.3-11.1)
[2020-03-16] MEDS: *HR* Enoxaparin 40 MG/0.4 ML SYRINGE SQ SCH (05:29)
[2020-03-16] MEDS: Gabapentin 400 MG CAPSULE PO SCH ×3 (05:29→21:06)
[2020-03-16 05:50] LABS: BUN/Creatinine Ratio 55 (6-26); Blood Urea Nitrogen 31 mg/dL (8-23); Calcium 8.4 mg/dL (8.6-10.3); Carbon Dioxide 30 mEq/L (23-29); Chloride 94 mEq/L (98-107); Glucose 182 mg/dL (70-105); Osmolality,Calculated 287 (280-300); Potassium 3.7 mEq/L (3.5-5.1); Sodium 133 mEq/L (136-145); eGFR For African Americans > 60 (> 60); eGFR For Non-African Americans > 60 (> 60)
[2020-03-16] MEDS: Insulin LISPRO 300 UNITS/3 ML VIAL SQ SCH ×7 (08:46→21:06)
[2020-03-16] MEDS: Furosemide 20 MG/2 ML VIAL IVP SCH ×2 (08:52→21:05)
[2020-03-16] MEDS: dexAMETHasone 4 MG TABLET PO SCH (08:53)
[2020-03-16] MEDS: Metoprolol XL (24 HR) Succ 25 MG TAB.ER.24H PO SCH (08:53)
[2020-03-16] MEDS: Multivit/Ca/Min/Fe/FA 1 TAB TABLET PO SCH (08:53)
[2020-03-16] MEDS: Insulin DETEMIR 100 UNIT/ML X5UNITS SQ SCH ×2 (09:28→21:05)
[2020-03-16] MEDS: Budesonide/Formoterol 160/4.5 1 PUFF INH IH SCH ×2 (12:10→22:07)
[2020-03-17] MEDS: Ipratropium 1 PUFF INHALER IH SCH ×4 (03:52→21:35)
[2020-03-17 04:42] LABS: Hematocrit 36.3 % (35.3-44.9); Hemoglobin 11.1 g/dL (11.5-15.4); Mean Corpuscular HGB Conc 30.6 g/dL (31.6-35.5); Mean Corpuscular Hemoglobin 26.9 pg (28.0-33.3); Mean Corpuscular Volume 88.1 fL (83.0-100.0); Mean Platelet Volume 9.8 fL (9.4-12.4); Platelet Count 309 K/mcL (140-400); Red Blood Count 4.12 M/mcL (3.82-4.97); Red Cell Distribution Width 14.7 % (11.5-14.5); White Blood Count 13.2 K/mcL (4.3-11.1)
[2020-03-17 04:59] LABS: BUN/Creatinine Ratio 45 (6-26); Blood Urea Nitrogen 29 mg/dL (8-23); Calcium 8.5 mg/dL (8.6-10.3); Carbon Dioxide 29 mEq/L (23-29); Chloride 93 mEq/L (98-107); Glucose 294 mg/dL (70-105); Osmolality,Calculated 287 (280-300); Potassium 3.8 mEq/L (3.5-5.1); Sodium 130 mEq/L (136-145); eGFR For African Americans > 60 (> 60); eGFR For Non-African Americans > 60 (> 60)
[2020-03-17] MEDS: *HR* Enoxaparin 40 MG/0.4 ML SYRINGE SQ SCH (05:26)
[2020-03-17] MEDS: Gabapentin 400 MG CAPSULE PO SCH ×3 (05:27→20:24)
[2020-03-17] MEDS: Metoprolol XL (24 HR) Succ 25 MG TAB.ER.24H PO SCH (08:48)
[2020-03-17] MEDS: Furosemide 20 MG/2 ML VIAL IVP SCH ×2 (08:49→20:24)
[2020-03-17] MEDS: Multivit/Ca/Min/Fe/FA 1 TAB TABLET PO SCH (08:49)
[2020-03-17] MEDS: dexAMETHasone 4 MG TABLET PO SCH (08:49)
[2020-03-17] MEDS: Insulin LISPRO 300 UNITS/3 ML VIAL SQ SCH ×7 (08:51→20:27)
[2020-03-17] MEDS: Insulin DETEMIR 100 UNIT/ML X5UNITS SQ SCH ×2 (10:12→20:24)
[2020-03-17] MEDS: Budesonide/Formoterol 160/4.5 1 PUFF INH IH SCH ×2 (10:20→21:36)
[2020-03-18] MEDS: Ipratropium 1 PUFF INHALER IH SCH ×4 (03:34→22:27)
[2020-03-18] MEDS: *HR* Enoxaparin 40 MG/0.4 ML SYRINGE SQ SCH (05:20)
[2020-03-18] MEDS: Gabapentin 400 MG CAPSULE PO SCH ×3 (06:13→22:01)
[2020-03-18] MEDS: Insulin LISPRO 300 UNITS/3 ML VIAL SQ SCH ×7 (07:52→22:00)
[2020-03-18] MEDS: Furosemide 20 MG/2 ML VIAL IVP SCH ×2 (07:53→22:00)
[2020-03-18] MEDS: Multivit/Ca/Min/Fe/FA 1 TAB TABLET PO SCH (07:54)
[2020-03-18] MEDS: Metoprolol XL (24 HR) Succ 25 MG TAB.ER.24H PO SCH (07:54)
[2020-03-18] MEDS: dexAMETHasone 4 MG TABLET PO SCH (07:54)
[2020-03-18] MEDS: Insulin DETEMIR 100 UNIT/ML X5UNITS SQ SCH ×2 (07:56→22:01)
[2020-03-18] MEDS: Budesonide/Formoterol 160/4.5 1 PUFF INH IH SCH ×2 (09:33→22:28)
[2020-03-19] MEDS: Ipratropium 1 PUFF INHALER IH SCH ×4 (03:42→22:45)
[2020-03-19] MEDS: *HR* Enoxaparin 40 MG/0.4 ML SYRINGE SQ SCH (05:41)
[2020-03-19] MEDS: Gabapentin 400 MG CAPSULE PO SCH ×3 (05:42→21:19)
[2020-03-19 07:31] LABS: Hematocrit 36.7 % (35.3-44.9); Hemoglobin 11.6 g/dL (11.5-15.4); Mean Corpuscular HGB Conc 31.6 g/dL (31.6-35.5); Mean Corpuscular Hemoglobin 27.8 pg (28.0-33.3); Mean Platelet Volume 9.7 fL (9.4-12.4); Platelet Count 315 K/mcL (140-400); Red Blood Count 4.17 M/mcL (3.82-4.97); Red Cell Distribution Width 15.1 % (11.5-14.5)
[2020-03-19 07:50] LABS: BUN/Creatinine Ratio 46 (6-26); Blood Urea Nitrogen 30 mg/dL (8-23); Calcium 8.5 mg/dL (8.6-10.3); Carbon Dioxide 30 mEq/L (23-29); Chloride 94 mEq/L (98-107); Glucose 215 mg/dL (70-105); Osmolality,Calculated 287 (280-300); Potassium 3.9 mEq/L (3.5-5.1); Sodium 132 mEq/L (136-145); eGFR For African Americans > 60 (> 60); eGFR For Non-African Americans > 60 (> 60)
[2020-03-19] MEDS: Insulin LISPRO 300 UNITS/3 ML VIAL SQ SCH ×7 (09:58→21:58)
[2020-03-19] MEDS: Multivit/Ca/Min/Fe/FA 1 TAB TABLET PO SCH (09:59)
[2020-03-19] MEDS: dexAMETHasone 4 MG TABLET PO SCH (09:59)
[2020-03-19] MEDS: Metoprolol XL (24 HR) Succ 25 MG TAB.ER.24H PO SCH (09:59)
[2020-03-19] MEDS: Furosemide 20 MG/2 ML VIAL IVP SCH ×2 (10:00→21:19)
[2020-03-19] MEDS: Insulin DETEMIR 100 UNIT/ML X5UNITS SQ SCH ×2 (10:01→21:20)
[2020-03-19] MEDS: Budesonide/Formoterol 160/4.5 1 PUFF INH IH SCH ×2 (10:29→22:44)
[2020-03-19] MEDS: Fluconazole 100 MG TABLET PO SCH (17:01)
[2020-03-20] MEDS: Ipratropium 1 PUFF INHALER IH SCH ×4 (04:47→21:09)
[2020-03-20] MEDS: *HR* Enoxaparin 40 MG/0.4 ML SYRINGE SQ SCH (05:35)
[2020-03-20] MEDS: Gabapentin 400 MG CAPSULE PO SCH ×3 (05:35→21:23)
[2020-03-20] MEDS: Metoprolol XL (24 HR) Succ 25 MG TAB.ER.24H PO SCH (08:31)
[2020-03-20] MEDS: Multivit/Ca/Min/Fe/FA 1 TAB TABLET PO SCH (08:31)
[2020-03-20] MEDS: dexAMETHasone 4 MG TABLET PO SCH (08:32)
[2020-03-20] MEDS: Insulin DETEMIR 100 UNIT/ML X5UNITS SQ SCH (08:33)
[2020-03-20] MEDS: Furosemide 20 MG/2 ML VIAL IVP SCH ×2 (08:33→21:23)
[2020-03-20] MEDS: Fluconazole 100 MG TABLET PO SCH (08:35)
[2020-03-20] MEDS: Insulin LISPRO 300 UNITS/3 ML VIAL SQ SCH ×7 (08:40→21:21)
[2020-03-20] MEDS: Budesonide/Formoterol 160/4.5 1 PUFF INH IH SCH ×2 (10:21→21:09)
[2020-03-20] MEDS: Insulin DETEMIR 100 UNIT/ML X5UNITS SUBQ SCH (21:22)
[2020-03-21] MEDS: Ipratropium 1 PUFF INHALER IH SCH ×3 (03:26→16:45)
[2020-03-21 04:27] LABS: BUN/Creatinine Ratio 45 (6-26); Blood Urea Nitrogen 28 mg/dL (8-23); Calcium 8.3 mg/dL (8.6-10.3); Carbon Dioxide 30 mEq/L (23-29); Chloride 96 mEq/L (98-107); Glucose 137 mg/dL (70-105); Magnesium 1.9 mg/dL (1.6-2.6); Osmolality,Calculated 286 (280-300); Sodium 134 mEq/L (136-145); eGFR For African Americans > 60 (> 60); eGFR For Non-African Americans > 60 (> 60)
[2020-03-21] MEDS: *HR* Enoxaparin 40 MG/0.4 ML SYRINGE SQ SCH (05:53)
[2020-03-21] MEDS: Gabapentin 400 MG CAPSULE PO SCH ×2 (05:54→11:46)
[2020-03-21 06:54] VITALS: BP 129/70
[2020-03-21] MEDS: Insulin LISPRO 300 UNITS/3 ML VIAL SQ SCH ×4 (07:51→11:56)
[2020-03-21] MEDS: Furosemide 20 MG/2 ML VIAL IVP SCH (07:52)
[2020-03-21] MEDS: Metoprolol XL (24 HR) Succ 25 MG TAB.ER.24H PO SCH (07:52)
[2020-03-21] MEDS: Multivit/Ca/Min/Fe/FA 1 TAB TABLET PO SCH (07:52)
[2020-03-21] MEDS: dexAMETHasone 4 MG TABLET PO SCH (07:53)
[2020-03-21] MEDS: Fluconazole 100 MG TABLET PO SCH (07:56)
[2020-03-21] MEDS: Insulin DETEMIR 100 UNIT/ML X5UNITS SUBQ SCH (08:19)
[2020-03-21] MEDS: Budesonide/Formoterol 160/4.5 1 PUFF INH IH SCH (10:44)
== END 2020-03-21 17:02 | disposition home health service (06) ==
LOC: 2NENU → SUATTDRO 06:10 → 2NENU 06:22 → SUATTDRO 14:55 → 2NENU 03-15 13:19 → 3BNU 03-16 10:42
PROVIDERS: ADMIT Internal Medicine; ATTEND Internal Medicine

== ENCOUNTER 2021-10-09 16:51 | Inpatient (IN) ==
[2021-10-09] MEDS ORDERED: Naloxone 0.4 MG/ML INJ IVP PRN (21:03)
[2021-10-09] MEDS ORDERED: Acetaminophen 325 MG TABLET PO PRN (21:03)
[2021-10-09] MEDS ORDERED: Melatonin 3 MG TABLET PO PRN (21:03)
[2021-10-09] MEDS ORDERED: Ondansetron 4 MG/2 ML VIAL IVP PRN (21:03)
[2021-10-09] MEDS ORDERED: *HR* Dextrose 50 % in Water (Syg) 50 ML SYRINGE IVP PRN (21:10)
[2021-10-09] MEDS ORDERED: Dextrose Gel 15 GM/37.5 ML TUBE PO PRN ×2 (21:10)
[2021-10-09] MEDS ORDERED: D5% in Water 1,000 ML IVC PRN (21:10)
[2021-10-10] MEDS: Insulin LISPRO 300 UNITS/3 ML VIAL SUBQ SCH ×5 (00:23→17:07)
[2021-10-10] MEDS ORDERED: 0.9 % Sodium Chloride 1,000 ML IVC ONE (03:01)
[2021-10-10] MEDS: *HR* Heparin 5,000 UNIT/ML VIAL SQ SCH ×2 (06:01→17:20)
[2021-10-10 07:02] LABS: Basophils # 0.1 K/mcL (0.0-0.2); Basophils % 0.6 %; Eosinophils # 0.1 K/mcL (0.0-0.6); Eosinophils % 0.7 %; Hematocrit 29.6 % (35.3-44.9); Hemoglobin 9.2 g/dL (11.5-15.4); Immature Granulocytes % 1.2 % (0-4); Lymphocytes # 1.6 K/mcL (0.6-4.6); Lymphocytes % 13.7 %; Mean Corpuscular HGB Conc 31.1 g/dL (31.6-35.5); Mean Corpuscular Hemoglobin 30.9 pg (28.0-33.3); Mean Corpuscular Volume 99.3 fL (83.0-100.0); Mean Platelet Volume 9.7 fL (9.4-12.4); Monocytes # 0.8 K/mcL (0.0-1.3); Monocytes % 6.6 %; Neutrophils # 9.1 K/mcL (1.6-8.9); Platelet Count 302 K/mcL (140-400); Red Blood Count 2.98 M/mcL (3.82-4.97); Red Cell Distribution Width 15.3 % (11.5-14.5); Segmented Neutrophils % 77.2 %; White Blood Count 11.8 K/mcL (4.3-11.1)
[2021-10-10 07:04] LABS: INR 1.3; Prothrombin Time 14.5 Seconds (9.4-12.1)
[2021-10-10 07:07] LABS: Activated Partial Thrombo Time 30.7 Seconds (26.0-36.0)
[2021-10-10 16:40] LABS: Protein/Creatinine Ratio,Urine 2.51 mg/mg (0.00-0.20); Sodium, Urine 13.4 mEq/L
[2021-10-10 16:42] LABS: Bacteria,Urine Few per hpf (None-Few); Bilirubin,Urine Negative (Negative); Blood,Urine Large (Negative); Clarity,Urine Turbid (Clear); Color,Urine Yellow (Yellow); Glucose,Urine (UA) Normal (Normal); Hyaline Casts,Urine Few per lpf (None Seen); Ketones,Urine Negative (Negative); Leukocyte Esterase,Urine Small (Negative); Mucus,Urine Few per lpf (None-Few); Nitrite,Urine Negative (Negative); PH,Urine 5.5 pH Units (5.0-8.0); Protein,Urine 100 mg/dL (Neg-Trace); RBC,Urine 30-50 per hpf (0-3); Specific Gravity,Urine 1.019 (1.010-1.025); Urobilinogen,Urine Normal (Normal)
[2021-10-10 16:45] LABS: Albumin 3.3 g/dL (3.5-5.7); Calcium 8.3 mg/dL (8.6-10.3); Phosphorous 8.2 mg/dL (2.7-4.5)
[2021-10-10 16:46] LABS: Complement C3 143 mg/dL (87-200)
[2021-10-10] MEDS ORDERED: SODIUM ZIRCONIUM CYCLOSILICATE 5 GM POWD.PACK PO ONE (16:49)
[2021-10-10] MEDS ORDERED: Calcium Gluconate 1gm/50mL 1 GM/50 ML BAG IVPB ONE (16:49)
[2021-10-10] MEDS ORDERED: Insulin Human Regular 10 UNIT in 0.9 % Sodium Chloride 10 ML IV ONE (16:56)
[2021-10-10] MEDS ORDERED: *HR* Dextrose 50 % in Water (Syg) 50 ML SYRINGE IVP ONE (17:00)
[2021-10-10 17:06] LABS: Magnesium 2.3 mg/dL (1.6-2.6); Troponin I 0.14 ng/mL (< 0.04)
[2021-10-10 17:25] LABS: Albumin/Globulin Ratio 0.8 (1.1-2.2); Bilirubin,Total 0.5 mg/dL (0.3-1.0); Globulin 3.9 g/dL (2.4-3.5); Total Protein 7.2 g/dL (6.4-8.9)
[2021-10-10] MEDS: Albuterol 2.5 MG/3 ML NEBULIZER IH ONE ×2 (17:33)
[2021-10-10] MEDS ORDERED: 0.9 % Sodium Chloride 1,000 ML IVC SCH (19:30)
[2021-10-10] MEDS: SODIUM ZIRCONIUM CYCLOSILICATE 5 GM POWD.PACK PO SCH (20:44)
[2021-10-10 21:10] LABS: Calcium 8.1 mg/dL (8.6-10.3); Potassium 6.8 mEq/L (3.5-5.1)
[2021-10-10] MEDS ORDERED: Sodium Bicarbonate 75 MEQ in 0.45 % Sodium Chloride 1,000 ML IVC SCH (23:30)
[2021-10-10 23:32] LABS: Calcium 7.9 mg/dL (8.6-10.3); Potassium 6.7 mEq/L (3.5-5.1); Troponin I 0.19 ng/mL (< 0.04)
[2021-10-11 03:19] LABS: Basophils # 0.1 K/mcL (0.0-0.2); Basophils % 0.7 %; Eosinophils # 0.2 K/mcL (0.0-0.6); Eosinophils % 1.4 %; Hematocrit 26.4 % (35.3-44.9); Hemoglobin 8.2 g/dL (11.5-15.4); Immature Granulocytes % 1.4 % (0-4); Lymphocytes # 2.1 K/mcL (0.6-4.6); Lymphocytes % 18.9 %; Mean Corpuscular HGB Conc 31.1 g/dL (31.6-35.5); Mean Corpuscular Hemoglobin 30.8 pg (28.0-33.3); Mean Corpuscular Volume 99.2 fL (83.0-100.0); Mean Platelet Volume 9.9 fL (9.4-12.4); Monocytes # 0.8 K/mcL (0.0-1.3); Monocytes % 7.6 %; Neutrophils # 7.7 K/mcL (1.6-8.9); Platelet Count 252 K/mcL (140-400); Red Blood Count 2.66 M/mcL (3.82-4.97); Red Cell Distribution Width 15.2 % (11.5-14.5); White Blood Count 11.1 K/mcL (4.3-11.1)
[2021-10-11 03:40] LABS: Calcium 8.2 mg/dL (8.6-10.3); Magnesium 2.3 mg/dL (1.6-2.6)
[2021-10-11] MEDS: *HR* Heparin 5,000 UNIT/ML VIAL SQ SCH ×2 (03:41→16:45)
[2021-10-11 03:55] LABS: Troponin I 0.18 ng/mL (< 0.04)
[2021-10-11] MEDS: Insulin LISPRO 300 UNITS/3 ML VIAL SUBQ SCH ×3 (08:15→16:45)
[2021-10-11] MEDS: SODIUM ZIRCONIUM CYCLOSILICATE 5 GM POWD.PACK PO SCH ×3 (08:35→20:16)
[2021-10-11 11:51] LABS: Calcium 8.1 mg/dL (8.6-10.3); Potassium 6.2 mEq/L (3.5-5.1)
[2021-10-11 11:53] LABS: % Iron Saturation 41 % (15-50); Acetaminophen < 10 mcg/mL (10-20); Creatine Kinase 85 Units/L (30-223); Iron 109 mcg/dL (50-170); Transferrin 188 mg/dL (203-362)
[2021-10-11 12:06] LABS: Albumin 3.2 g/dL (3.5-5.7); Albumin/Globulin Ratio 0.9 (1.1-2.2); Bilirubin,Direct 0.2 mg/dL (0.0-0.2); Bilirubin,Indirect 0.4 mg/dL (0.0-1.0); Bilirubin,Total 0.6 mg/dL (0.3-1.0); Globulin 3.4 g/dL (2.4-3.5); Total Protein 6.6 g/dL (6.4-8.9)
[2021-10-11 12:16] LABS: Ferritin > 1500 ng/mL (10-120)
[2021-10-11 13:50] LABS: Hepatitis B Surface Antigen Nonreactive (Nonreactive)
[2021-10-11 14:20] LABS: Hepatitis B Core IgM Nonreactive (Nonreactive)
[2021-10-11 14:22] LABS: Hepatitis A Antibody IgM Nonreactive (Nonreactive); Hepatitis C Virus Antibody Nonreactive (Nonreactive)
[2021-10-11 14:53] LABS: Folate > 22.3 ng/mL (3.0-16.0); Vitamin B12 1265 pg/mL (250-1100)
[2021-10-11] MEDS ORDERED: Insulin Human Regular 10 UNIT in 0.9 % Sodium Chloride 10 ML IV ONE (17:41)
[2021-10-11] MEDS ORDERED: *HR* Dextrose 50 % in Water (Syg) 50 ML SYRINGE IVP ONE (17:41)
[2021-10-11] MEDS ORDERED: Sodium Bicarbonate 75 MEQ in 0.45 % Sodium Chloride 1,000 ML IVC SCH (18:00)
[2021-10-11] MEDS: Calcium Gluconate 1gm/50mL 1 GM/50 ML BAG IVPB SCH ×2 (18:55→20:15)
[2021-10-11 19:48] LABS: Calcium 8.4 mg/dL (8.6-10.3); Potassium 5.7 mEq/L (3.5-5.1)
[2021-10-11 23:25] LABS: Calcium 8.4 mg/dL (8.6-10.3); Potassium 5.4 mEq/L (3.5-5.1)
[2021-10-11] MEDS: Sodium Bicarbonate 75 MEQ in 0.45 % Sodium Chloride 1,000 ML IVC SCH (23:28)
[2021-10-12 03:12] LABS: Calcium 8.4 mg/dL (8.6-10.3); Potassium 5.2 mEq/L (3.5-5.1)
[2021-10-12] MEDS: *HR* Heparin 5,000 UNIT/ML VIAL SQ SCH ×2 (05:27→17:10)
[2021-10-12 05:58] LABS: Basophils # 0.1 K/mcL (0.0-0.2); Eosinophils # 0.1 K/mcL (0.0-0.6); Eosinophils % 1.1 %; Hematocrit 24.5 % (35.3-44.9); Hemoglobin 7.7 g/dL (11.5-15.4); Immature Granulocytes % 1.6 % (0-4); Lymphocytes % 9.5 %; Mean Corpuscular HGB Conc 31.4 g/dL (31.6-35.5); Mean Corpuscular Hemoglobin 31.3 pg (28.0-33.3); Mean Corpuscular Volume 99.6 fL (83.0-100.0); Mean Platelet Volume 10.1 fL (9.4-12.4); Monocytes # 0.8 K/mcL (0.0-1.3); Monocytes % 7.6 %; Neutrophils # 8.3 K/mcL (1.6-8.9); Nucleated Red Blood Cells 0.3 /100 WBC (0); Platelet Count 269 K/mcL (140-400); Red Blood Count 2.46 M/mcL (3.82-4.97); Red Cell Distribution Width 15.2 % (11.5-14.5); Segmented Neutrophils % 79.2 %; White Blood Count 10.5 K/mcL (4.3-11.1)
[2021-10-12 07:17] LABS: Albumin 3.2 g/dL (3.5-5.7); Albumin/Globulin Ratio 0.9 (1.1-2.2); Bilirubin,Direct 0.2 mg/dL (0.0-0.2); Bilirubin,Indirect 0.4 mg/dL (0.0-1.0); Bilirubin,Total 0.6 mg/dL (0.3-1.0); Calcium 8.1 mg/dL (8.6-10.3); Globulin 3.4 g/dL (2.4-3.5); Magnesium 2.4 mg/dL (1.6-2.6); Phosphorous 7.9 mg/dL (2.7-4.5); Potassium 5.5 mEq/L (3.5-5.1); Total Protein 6.6 g/dL (6.4-8.9)
[2021-10-12] MEDS ORDERED: *HR* Dextrose 50 % in Water (Syg) 50 ML SYRINGE IVP ONE (07:30)
[2021-10-12] MEDS ORDERED: Insulin Human Regular 10 UNIT in 0.9 % Sodium Chloride 10 ML IV ONE (07:30)
[2021-10-12] MEDS: Insulin LISPRO 300 UNITS/3 ML VIAL SUBQ SCH ×3 (09:06→17:09)
[2021-10-12] MEDS: SODIUM ZIRCONIUM CYCLOSILICATE 5 GM POWD.PACK PO SCH ×2 (10:04→15:41)
[2021-10-12] MEDS: Sodium Bicarbonate 75 MEQ in 0.45 % Sodium Chloride 1,000 ML IVC SCH (10:20)
[2021-10-12] MEDS ORDERED: Perflutren Lipid Microsphere 1.3 ML in 0.9 % Sodium Chloride 8.7 ML IVP PRN (11:17)
[2021-10-12 12:18] LABS: Estimated Average Glucose 177 mg/dl; Hemoglobin A1C 7.8 %
[2021-10-13 04:37] LABS: Basophils # 0.1 K/mcL (0.0-0.2); Basophils % 1.2 %; Eosinophils # 0.3 K/mcL (0.0-0.6); Eosinophils % 3.8 %; Hematocrit 23.4 % (35.3-44.9); Hemoglobin 7.3 g/dL (11.5-15.4); Immature Granulocytes % 1.5 % (0-4); Lymphocytes # 1.4 K/mcL (0.6-4.6); Lymphocytes % 16.4 %; Mean Corpuscular HGB Conc 31.2 g/dL (31.6-35.5); Mean Corpuscular Hemoglobin 31.1 pg (28.0-33.3); Mean Corpuscular Volume 99.6 fL (83.0-100.0); Mean Platelet Volume 9.8 fL (9.4-12.4); Monocytes # 0.9 K/mcL (0.0-1.3); Monocytes % 9.8 %; Neutrophils # 5.8 K/mcL (1.6-8.9); Nucleated Red Blood Cells 0.8 /100 WBC (0); Platelet Count 286 K/mcL (140-400); Red Blood Count 2.35 M/mcL (3.82-4.97); Red Cell Distribution Width 15.2 % (11.5-14.5); Segmented Neutrophils % 67.3 %; White Blood Count 8.7 K/mcL (4.3-11.1)
[2021-10-13 04:58] LABS: Albumin 3.1 g/dL (3.5-5.7); Bilirubin,Direct 0.2 mg/dL (0.0-0.2); Bilirubin,Indirect 0.4 mg/dL (0.0-1.0); Bilirubin,Total 0.6 mg/dL (0.3-1.0); Calcium 7.7 mg/dL (8.6-10.3); Globulin 3.1 g/dL (2.4-3.5); Magnesium 2.3 mg/dL (1.6-2.6); Potassium 4.2 mEq/L (3.5-5.1); Total Protein 6.2 g/dL (6.4-8.9)
[2021-10-13] MEDS: *HR* Heparin 5,000 UNIT/ML VIAL SQ SCH ×2 (06:11→18:15)
[2021-10-13] MEDS: Insulin LISPRO 300 UNITS/3 ML VIAL SUBQ SCH ×3 (09:02→17:10)
[2021-10-13] MEDS: Aspirin Enteric Coated 81 MG Tablet PO SCH (09:08)
[2021-10-13 10:37] LABS: ANA IgG by ELISA NONE DETECTED (None Detected)
[2021-10-13] MEDS ORDERED: *HR* LORazepam 2 MG/ML VIAL IVP ONE (16:07)
[2021-10-13] MEDS ORDERED: Morphine Sulfate 2 MG/ML SYRINGE IVP ONE (16:08)
[2021-10-13] MEDS ORDERED: Haloperidol Lactate 5 MG/ML VIAL IVP ONE (21:52)
[2021-10-14] MEDS: *HR* Heparin 5,000 UNIT/ML VIAL SQ SCH ×2 (06:37→16:50)
[2021-10-14] MEDS: Insulin LISPRO 300 UNITS/3 ML VIAL SUBQ SCH ×3 (07:31→16:50)
[2021-10-14] MEDS ORDERED: Ondansetron 4 MG/2 ML VIAL IVP PRN (08:10)
[2021-10-14] MEDS: Metoprolol XL (24 HR) Succ 25 MG TAB.ER.24H PO SCH (08:19)
[2021-10-14] MEDS: Aspirin Enteric Coated 81 MG Tablet PO SCH (08:19)
[2021-10-14] MEDS: Sennosides/Docusate Sodium TABLET PO SCH ×2 (08:22→21:12)
[2021-10-14] MEDS: polyethylene glycoL 3350 17 GM POWD.PACK PO SCH (08:22)
[2021-10-14 09:56] LABS: Basophils # 0.1 K/mcL (0.0-0.2); Basophils % 1.1 %; Eosinophils # 0.3 K/mcL (0.0-0.6); Eosinophils % 3.8 %; Hematocrit 25.4 % (35.3-44.9); Hemoglobin 7.7 g/dL (11.5-15.4); Immature Granulocytes % 1.1 % (0-4); Lymphocytes # 1.2 K/mcL (0.6-4.6); Lymphocytes % 15.2 %; Mean Corpuscular HGB Conc 30.3 g/dL (31.6-35.5); Mean Corpuscular Hemoglobin 30.7 pg (28.0-33.3); Mean Corpuscular Volume 101.2 fL (83.0-100.0); Mean Platelet Volume 9.2 fL (9.4-12.4); Monocytes # 0.7 K/mcL (0.0-1.3); Monocytes % 8.8 %; Neutrophils # 5.5 K/mcL (1.6-8.9); Nucleated Red Blood Cells 0.6 /100 WBC (0); Platelet Count 320 K/mcL (140-400); Red Blood Count 2.51 M/mcL (3.82-4.97); Red Cell Distribution Width 15.1 % (11.5-14.5); White Blood Count 7.8 K/mcL (4.3-11.1)
[2021-10-14 10:54] LABS: Albumin 3.2 g/dL (3.5-5.7); Albumin/Globulin Ratio 0.9 (1.1-2.2); Bilirubin,Direct 0.2 mg/dL (0.0-0.2); Bilirubin,Indirect 0.6 mg/dL (0.0-1.0); Bilirubin,Total 0.8 mg/dL (0.3-1.0); Calcium 8.4 mg/dL (8.6-10.3); Globulin 3.6 g/dL (2.4-3.5); Magnesium 2.1 mg/dL (1.6-2.6); Potassium 4.4 mEq/L (3.5-5.1); Total Protein 6.8 g/dL (6.4-8.9)
[2021-10-14] MEDS: Gabapentin 300 MG CAPSULE PO SCH ×2 (15:59→21:12)
[2021-10-14 19:53] LABS: Alpha 2 Globulin (PEP) 1.23 g/dL (0.48-1.05); Beta Globulin (PEP) 0.96 g/dL (0.48-1.10)
[2021-10-15] MEDS: *HR* Heparin 5,000 UNIT/ML VIAL SQ SCH ×2 (05:49→18:11)
[2021-10-15 07:10] LABS: IFE Reflexed IFE Done; Immunoglobulin A 468 mg/dL (68-408); Immunoglobulin G 1153 mg/dL (768-1632); Immunoglobulin M 76 mg/dL (35-263)
[2021-10-15] MEDS: Insulin LISPRO 300 UNITS/3 ML VIAL SUBQ SCH ×3 (08:16→18:11)
[2021-10-15] MEDS: Gabapentin 300 MG CAPSULE PO SCH ×3 (08:24→20:40)
[2021-10-15] MEDS: Metoprolol XL (24 HR) Succ 25 MG TAB.ER.24H PO SCH (08:24)
[2021-10-15] MEDS: Aspirin Enteric Coated 81 MG Tablet PO SCH (08:24)
[2021-10-15] MEDS: Sennosides/Docusate Sodium TABLET PO SCH ×2 (08:24→20:40)
[2021-10-15] MEDS: polyethylene glycoL 3350 17 GM POWD.PACK PO SCH (08:25)
[2021-10-15 09:48] LABS: Basophils # 0.1 K/mcL (0.0-0.2); Basophils % 1.1 %; Eosinophils # 0.4 K/mcL (0.0-0.6); Eosinophils % 4.8 %; Hematocrit 24.7 % (35.3-44.9); Hemoglobin 7.4 g/dL (11.5-15.4); Immature Granulocytes % 1.4 % (0-4); Lymphocytes # 1.6 K/mcL (0.6-4.6); Mean Corpuscular Volume 103.3 fL (83.0-100.0); Mean Platelet Volume 9.1 fL (9.4-12.4); Monocytes # 0.7 K/mcL (0.0-1.3); Monocytes % 8.8 %; Neutrophils # 5.4 K/mcL (1.6-8.9); Nucleated Red Blood Cells 1.1 /100 WBC (0); Platelet Count 294 K/mcL (140-400); Red Blood Count 2.39 M/mcL (3.82-4.97); Red Cell Distribution Width 15.2 % (11.5-14.5); Segmented Neutrophils % 64.9 %; White Blood Count 8.3 K/mcL (4.3-11.1)
[2021-10-15 10:11] LABS: Alanine Aminotransferase 249 Units/L (7-52); Albumin 3.2 g/dL (3.5-5.7); Albumin/Globulin Ratio 0.9 (1.1-2.2); Alkaline Phosphatase 59 Units/L (34-104); Aspartate Amino Transferase 70 Units/L (13-39); BUN/Creatinine Ratio 24 (6-26); Bilirubin,Direct 0.3 mg/dL (0.0-0.2); Bilirubin,Indirect 0.5 mg/dL (0.0-1.0); Bilirubin,Total 0.8 mg/dL (0.3-1.0); Blood Urea Nitrogen 21 mg/dL (8-23); Calcium 8.1 mg/dL (8.6-10.3); Carbon Dioxide 34 mEq/L (23-29); Chloride 102 mEq/L (98-107); Globulin 3.4 g/dL (2.4-3.5); Glucose 165 mg/dL (70-105); Magnesium 1.8 mg/dL (1.6-2.6); Osmolality,Calculated 293 (280-300); Potassium 4.3 mEq/L (3.5-5.1); Sodium 138 mEq/L (136-145); Total Protein 6.6 g/dL (6.4-8.9); eGFR For African Americans > 60 (> 60); eGFR For Non-African Americans > 60 (> 60)
[2021-10-16] MEDS: *HR* Heparin 5,000 UNIT/ML VIAL SQ SCH ×2 (05:41→16:58)
[2021-10-16 06:28] LABS: Basophils # 0.1 K/mcL (0.0-0.2); Eosinophils # 0.4 K/mcL (0.0-0.6); Eosinophils % 4.7 %; Hematocrit 24.6 % (35.3-44.9); Hemoglobin 7.5 g/dL (11.5-15.4); Lymphocytes # 2.5 K/mcL (0.6-4.6); Lymphocytes % 28.8 %; Mean Corpuscular HGB Conc 30.5 g/dL (31.6-35.5); Mean Corpuscular Volume 101.7 fL (83.0-100.0); Mean Platelet Volume 9.3 fL (9.4-12.4); Monocytes # 0.8 K/mcL (0.0-1.3); Monocytes % 8.7 %; Neutrophils # 4.8 K/mcL (1.6-8.9); Nucleated Red Blood Cells 1.5 /100 WBC (0); Platelet Count 318 K/mcL (140-400); Red Blood Count 2.42 M/mcL (3.82-4.97); Red Cell Distribution Width 15.4 % (11.5-14.5); Segmented Neutrophils % 54.8 %; White Blood Count 8.7 K/mcL (4.3-11.1)
[2021-10-16 06:51] LABS: Alanine Aminotransferase 186 Units/L (7-52); Albumin 3.2 g/dL (3.5-5.7); Albumin/Globulin Ratio 0.9 (1.1-2.2); Alkaline Phosphatase 57 Units/L (34-104); Aspartate Amino Transferase 41 Units/L (13-39); BUN/Creatinine Ratio 20 (6-26); Bilirubin,Direct 0.3 mg/dL (0.0-0.2); Bilirubin,Indirect 0.7 mg/dL (0.0-1.0); Blood Urea Nitrogen 17 mg/dL (8-23); Calcium 8.5 mg/dL (8.6-10.3); Carbon Dioxide 32 mEq/L (23-29); Chloride 99 mEq/L (98-107); Globulin 3.4 g/dL (2.4-3.5); Glucose 135 mg/dL (70-105); Osmolality,Calculated 290 (280-300); Potassium 4.8 mEq/L (3.5-5.1); Sodium 138 mEq/L (136-145); Total Protein 6.6 g/dL (6.4-8.9); eGFR For African Americans > 60 (> 60); eGFR For Non-African Americans > 60 (> 60)
[2021-10-16] MEDS: Sennosides/Docusate Sodium TABLET PO SCH ×2 (08:03→19:54)
[2021-10-16] MEDS: Gabapentin 300 MG CAPSULE PO SCH ×3 (08:04→19:54)
[2021-10-16] MEDS: Aspirin Enteric Coated 81 MG Tablet PO SCH (08:04)
[2021-10-16] MEDS: Metoprolol XL (24 HR) Succ 25 MG TAB.ER.24H PO SCH (08:04)
[2021-10-16] MEDS: Insulin LISPRO 300 UNITS/3 ML VIAL SUBQ SCH ×3 (08:06→16:57)
[2021-10-16] MEDS: polyethylene glycoL 3350 17 GM POWD.PACK PO SCH (08:07)
[2021-10-16] MEDS: Magic Mouthwash 10 ML UD Cup PO SCH ×2 (11:48→16:57)
[2021-10-16] MEDS ORDERED: Ergocalciferol (VIT D2) 50,000 UNIT (1.25MG) CAP PO SCH (17:18)
[2021-10-17] MEDS: *HR* Heparin 5,000 UNIT/ML VIAL SQ SCH ×2 (04:08→17:27)
[2021-10-17 05:48] LABS: Basophils # 0.1 K/mcL (0.0-0.2); Basophils % 0.9 %; Eosinophils # 0.3 K/mcL (0.0-0.6); Eosinophils % 3.1 %; Hematocrit 24.6 % (35.3-44.9); Hemoglobin 7.4 g/dL (11.5-15.4); Immature Granulocytes % 3.3 % (0-4); Lymphocytes # 2.1 K/mcL (0.6-4.6); Lymphocytes % 21.6 %; Mean Corpuscular HGB Conc 30.1 g/dL (31.6-35.5); Mean Corpuscular Volume 102.9 fL (83.0-100.0); Mean Platelet Volume 9.1 fL (9.4-12.4); Monocytes # 0.8 K/mcL (0.0-1.3); Monocytes % 8.4 %; Neutrophils # 6.1 K/mcL (1.6-8.9); Nucleated Red Blood Cells 1.5 /100 WBC (0); Platelet Count 312 K/mcL (140-400); Red Blood Count 2.39 M/mcL (3.82-4.97); Red Cell Distribution Width 15.7 % (11.5-14.5); Segmented Neutrophils % 62.7 %; White Blood Count 9.7 K/mcL (4.3-11.1)
[2021-10-17 06:41] LABS: BUN/Creatinine Ratio 17 (6-26); Blood Urea Nitrogen 15 mg/dL (8-23); Calcium 8.1 mg/dL (8.6-10.3); Carbon Dioxide 32 mEq/L (23-29); Chloride 102 mEq/L (98-107); Glucose 177 mg/dL (70-105); Magnesium 1.6 mg/dL (1.6-2.6); Osmolality,Calculated 291 (280-300); Potassium 5.2 mEq/L (3.5-5.1); Sodium 138 mEq/L (136-145); eGFR For African Americans > 60 (> 60); eGFR For Non-African Americans > 60 (> 60)
[2021-10-17] MEDS ORDERED: Furosemide 40 MG/4 ML VIAL IVP ONE (09:33)
[2021-10-17] MEDS: SODIUM ZIRCONIUM CYCLOSILICATE 5 GM POWD.PACK PO SCH ×3 (09:52→20:14)
[2021-10-17] MEDS: Metoprolol XL (24 HR) Succ 25 MG TAB.ER.24H PO SCH (09:52)
[2021-10-17] MEDS: Aspirin Enteric Coated 81 MG Tablet PO SCH (09:53)
[2021-10-17] MEDS: Gabapentin 300 MG CAPSULE PO SCH ×3 (09:53→20:17)
[2021-10-17] MEDS: polyethylene glycoL 3350 17 GM POWD.PACK PO SCH (09:54)
[2021-10-17] MEDS: Insulin LISPRO 300 UNITS/3 ML VIAL SUBQ SCH ×3 (09:54→17:12)
[2021-10-17] MEDS: Magic Mouthwash 10 ML UD Cup PO SCH ×3 (09:54→17:27)
[2021-10-18] MEDS: *HR* Heparin 5,000 UNIT/ML VIAL SQ SCH (05:43)
[2021-10-18] MEDS: Insulin LISPRO 300 UNITS/3 ML VIAL SUBQ SCH ×3 (08:39→14:09)
[2021-10-18] MEDS: Magic Mouthwash 10 ML UD Cup PO SCH ×3 (08:39→14:09)
[2021-10-18] MEDS: polyethylene glycoL 3350 17 GM POWD.PACK PO SCH (08:40)
[2021-10-18] MEDS: Gabapentin 300 MG CAPSULE PO SCH ×2 (08:40→14:53)
[2021-10-18] MEDS: Aspirin Enteric Coated 81 MG Tablet PO SCH (08:40)
[2021-10-18] MEDS: Metoprolol XL (24 HR) Succ 25 MG TAB.ER.24H PO SCH (08:40)
[2021-10-18 09:46] LABS: Basophils # 0.1 K/mcL (0.0-0.2); Eosinophils # 0.3 K/mcL (0.0-0.6); Eosinophils % 3.5 %; Hematocrit 24.3 % (35.3-44.9); Hemoglobin 7.3 g/dL (11.5-15.4); Immature Granulocytes % 3.6 % (0-4); Lymphocytes # 1.8 K/mcL (0.6-4.6); Lymphocytes % 18.8 %; Mean Corpuscular Hemoglobin 30.5 pg (28.0-33.3); Mean Corpuscular Volume 101.7 fL (83.0-100.0); Mean Platelet Volume 8.9 fL (9.4-12.4); Monocytes # 0.6 K/mcL (0.0-1.3); Monocytes % 5.8 %; Neutrophils # 6.5 K/mcL (1.6-8.9); Nucleated Red Blood Cells 0.6 /100 WBC (0); Platelet Count 302 K/mcL (140-400); Red Blood Count 2.39 M/mcL (3.82-4.97); Red Cell Distribution Width 15.8 % (11.5-14.5); Segmented Neutrophils % 67.3 %; White Blood Count 9.6 K/mcL (4.3-11.1)
[2021-10-18 10:05] LABS: BUN/Creatinine Ratio 20 (6-26); Blood Urea Nitrogen 15 mg/dL (8-23); Calcium 8.2 mg/dL (8.6-10.3); Carbon Dioxide 31 mEq/L (23-29); Chloride 98 mEq/L (98-107); Glucose 303 mg/dL (70-105); Magnesium 1.4 mg/dL (1.6-2.6); Osmolality,Calculated 294 (280-300); Potassium 4.2 mEq/L (3.5-5.1); Sodium 136 mEq/L (136-145); eGFR For African Americans > 60 (> 60); eGFR For Non-African Americans > 60 (> 60)
[2021-10-18 11:05] VITALS: BP 115/66; PULSE 89; TEMP 98.6; O2SAT 97
== END 2021-10-18 15:46 | disposition home health service (06) | DRG 682 ==
LOC: 2ANU → SUATTDRO 10-10 11:50 → 2ANU 10-13 11:11
PROVIDERS: ADMIT Student in an Organized Health Care Education/Training Program; ATTEND Pharmacist